=== PATIENT | female | born 1960 | race Caucasian/White ===

== ENCOUNTER 2017-09-15 22:39 | Inpatient (IN) | payer MEDICARE, MEDICAID ==
[2017-09-15] MEDS ORDERED: Multivitamin Tab PO ONE (23:32)
[2017-09-15 23:49] LABS: % EOSINOPHILS 0.6 % (0.0-5.0); % LYMPHOCYTES 33.4 % (20.0-50.0); % MONOCYTES 10.8 % (2.0-10.0); % NEUTROPHILS 54.2 % (40.0-80.0); HEMATOCRIT 39.1 % (41.0-60); HEMOGLOBIN 13.5 gm/dL (12-16); MEAN CELL VOLUME 91.9 fl (81-100); MEAN CORPUSCULAR HEMOGLOBIN 31.6 pg (27.0-31.0); MEAN CORPUSCULAR HGB CONC 34.4 pg (28.0-36.0); MEAN PLATELET VOLUME 8.4 fl; NEUTROPHILE ABSOLUTE 4.1 Th/cmm (1.8-8.0); PLATELET COUNT 184 Th/cmm (150-400); RED BLOOD COUNT 4.25 Mil/cmm (3.80-5.10); RED CELL DISTRIBUTION WIDTH 12.9 % (11.5-20.0); WHITE BLOOD COUNT 7.5 Th/cmm (4.8-10.8)
[2017-09-16 00:01] LABS: INR 0.96 (0.5-1.4)
[2017-09-16 00:02] LABS: ANION GAP 7.7 (7.0-16.0); BUN/CREATININE RATIO 27.5; CALCIUM SERUM 9.8 mg/dL (8.6-10.3); CARBON DIOXIDE 28.2 mEq/L (21.0-31.0); CREATININE - SERUM 1.2 mg/dL (0.6-1.2); POTASSIUM SERUM 3.9 mEq/L (3.5-5.1)
[2017-09-16] MEDS ORDERED: Multivitamin Tab ONE (00:27)
[2017-09-16] MEDS ORDERED: Levofloxacin 500mg/100mL 500 MG/100 ML BAG IV ONE (00:29)
--- NOTE | 2017-09-16 02:32 | ER Physician Documentation ---
DATE OF SERVICE: 09/15/2017 The patient is full code. This is a 57-year-old female patient. She is schizophrenic. This patient came from [facility]. [facility] is located in [address] [place] [id number]. The patient was seen today. I was told that at [facility], where she was given a gram of vancomycin, she has some cellulitis in the right second toe and a little growth also somewhere on the top of the second toe and hence they gave the thing. The patient was not very cooperative. The patient did not wanted anything further to be done for her, so she did not allow them for any treatment, so the patient was brought over here. HISTORY OF PRESENT ILLNESS: The patient has paranoid schizophrenia. She is known to have essential hypertension, hypothyroidism, atherosclerotic heart disease of [place] coronary artery without any definite angina pectoris, peripheral vascular disease, unspecified, but we did a Doppler study. Doppler evaluation of both dorsalis pedis, posterior tibial, we could hear sounds in both dorsalis pedis and posterior tibial. So peripheral vascular disease is not that bad. She has primary osteoarthritis of the right ankle and the right foot. She has disorder of the kidney and the ureter. She has gastroesophageal reflux without esophagitis. She has ____ absence of other toe. The patient is very hard to get any history. She keeps on mumbling lots of things and she cannot give more history or whatever I will find it, I will let you. REVIEW OF SYSTEMS: Also difficult to evaluate in view of the patient's condition. From what I read here in the previous [facility], the patient has some bowel management program. She has a history of orthostatic ____. She had a tardive dyskinesia. She had some pain management and treatment. She was also given some Ativan at the [facility], Ativan 1 tablet p.r.n. 3 times a day for paranoid schizophrenia. She was also given Depakote 500 mg by mouth 3 times a day for mood swings. DSS capsule was given. She was given magnesium hydroxide suspension 400 mg 5 mL as needed for constipation, multivitamin with minerals was given, Mylanta suspension was given as needed, 200-200-20 mg-5 mL. That 5 mL, I believe must be simethicone 30 mL by mouth every 2 hours as needed for GI distress. She was given some oxybutynin chloride ER extended release 24 hours, Seroquel 200 mg, which is quetiapine fumarate 1 tablet 4 times a day and Synthroid tablet, levothyroxine. Since we do not do the thyroid evaluation here in the hospital, it would be ordered by the primary care physician in another hospital. ALLERGIES: THORAZINE. She is taking a regular diet over there with 8 ounce of water with each meal. She is here to be admitted and having taken care for the treatment. I see here, the patient got some Cardiology consult and Eye consult and got some pneumococcal immunization and flu vaccination was given to her. Surrogate decision maker also I see that somebody is here as a surrogate decision maker for her. On physical examination, the patient was seen in bed 3. I looked at the x-ray, I could not definitely say for sure whether there was any osteomyelitis. I do not see for sure, but we will wait for the radiology report. On physical exam all the pulses in upper and lower extremities were felt. The patient keeps on mumbling different kinds of things, she has schizophrenia. She has no meningeal signs. She looks somewhat older than her stated age, not in any acute cardiorespiratory distress. Overall, general exam is benign and negative. No tremors. No Parkinson's disease seen. On examination of the right second toe, it is red, inflamed, tender, painful. We will get some uric acid level to see if there is any gouty arthritis present in this patient. The patient also has a small growth, I think on her right second toe, might need to be seen by a surgeon, might need a resection, but in the meantime, she is given clindamycin, vancomycin and I think I will give some Levaquin for a pseudomonas infection, if there is any. Other lab workup has been ordered. Foot x-ray has been ordered. Low cholesterol diet was given to the patient. We will get some lipid profile, etc. done for her. Other treatment as needed will be given to the patient as needed. JOB# [id number]
--- NOTE | 2017-09-16 02:37 | ER Physician Documentation ---
DATE OF SERVICE: 09/15/2017 ADDENDUM A 57-year-old female patient seen by me in the Emergency Room, dictated by Dr. Acosta. The lab reports so far that I got was white count of 7.5, which is within normal limits. Please note that the patient already got vancomycin today sometime at the [facility]. Hemoglobin 13.5, hematocrit 39.1, platelet count is 184,000 and polys are 54.2%. So far, I got that report only show just mentioning that. Once I get more, I will give it you. It is difficult to get it so far. JOB# [id number]
--- NOTE | 2017-09-16 02:39 | ER Physician Documentation ---
DATE OF SERVICE: 09/15/2017 ADDENDUM The patient will be admitted under Dr. Rivera Longo in the hospital for further continuation of care. Other lab results are not available. I am not sure when it will be coming, but the floor nurses can retract that. JOB# [id number]
[2017-09-16] MEDS: Sodium Chloride 0.9% 1,000 ML IV SCH ×2 (03:57→18:09)
[2017-09-16 04:31] VITALS: BP 135/74
[2017-09-16] MEDS ORDERED: Maalox 30 mL Cup PO PRN (08:00)
[2017-09-16] MEDS: Levothyroxine 0.1 Mg Tab PO SCH (09:06)
--- NOTE | 2017-09-16 10:02 | Diagnostic Imaging Report ---
Right foot 3 views Indication: Pain rule out osteomyelitis or fracture Comparison: none Findings: Hammertoes are seen limiting evaluation of the phalanges. No evidence of an acute fracture or dislocation. Hallux valgus is noted. There is no x-ray evidence of osteomyelitis. Pes planus is noted. A large plantar calcaneal spur is noted. Mild to moderate generalized degenerative changes are noted. Impression: Limited assessment of the phalanges due to hammertoes and hallux valgus. No evidence of an acute fracture. No x-ray evidence of osteomyelitis. If there is continued clinical concern for osteomyelitis, MRI is recommended for further assessment. Large plantar calcaneal spur. Pes planus. Mild/moderate generalized degenerative changes. In the setting of trauma, if clinical symptoms persist and there is continued concern for an occult fracture, follow up exams in 5-7 days is suggested.
[2017-09-16 11:15] LABS: HEMATOCRIT 39.9 % (41.0-60); HEMOGLOBIN 13.7 gm/dL (12-16); MEAN CELL VOLUME 92.2 fl (81-100); MEAN CORPUSCULAR HEMOGLOBIN 31.6 pg (27.0-31.0); MEAN CORPUSCULAR HGB CONC 34.2 pg (28.0-36.0); MEAN PLATELET VOLUME 8.4 fl; PLATELET COUNT 164 Th/cmm (150-400); RED BLOOD COUNT 4.33 Mil/cmm (3.80-5.10)
[2017-09-16 11:16] LABS: WHITE BLOOD COUNT 5.8 Th/cmm (4.8-10.8)
[2017-09-16 11:35] LABS: ANION GAP 7.2 (7.0-16.0); BUN - UREA NITROGEN 27 mg/dL (7-25); BUN/CREATININE RATIO 24.5; CALCIUM SERUM 9.6 mg/dL (8.6-10.3); CARBON DIOXIDE 29.7 mEq/L (21.0-31.0); CHLORIDE 108 mEq/L (98-107); CREATININE - SERUM 1.1 mg/dL (0.6-1.2); GLUCOSE 78 mg/dL (70-105); POTASSIUM SERUM 3.9 mEq/L (3.5-5.1); SODIUM SERUM 141 mEq/L (136-145)
[2017-09-16 12:01] LABS: TOTAL CELLS COUNTED 100
[2017-09-16 12:02] LABS: BAND NEUTROPHILE 3 % (0-10); EOSINOPHIL 1 % (0-5); NEUTROPHILS 39 % (40-80); PLATELET ESTIMATE ADEQUATE (NORMAL); PLATELET MORPHOLOGY NORMAL (NORMAL)
--- NOTE | 2017-09-16 16:53 | Consultation ---
Consult Note - Consult Note Service Date: 09/16/17 Consult Note: PHYSICIAN Consultation Note: Date of Admission: 09/16/17 Purpose of Consultation: Chief Complaint: History of Present Illness: Patient NADJA BAUER was admitted to [facility] with CELLULITIS. Past Medical History: Allergies Allergy/AdvReac Type Severity Reaction Status Date / Time No Known Allergies Allergy Verified 09/15/17 23:41 Vital Signs Temp 98.2 F 09/16/17 14:35 Pulse 84 09/16/17 14:35 Resp 18 09/16/17 14:35 BP 132/66 09/16/17 14:35 Pulse Ox 96 09/16/17 14:35 Intake & Output 09/15/17 09/16/17 09/16/17 18:59 06:59 18:59 Intake Total 100 Balance 100 Weight (lbs) 86.183 kg Intake: Oral 100 Other: # Voids 1 # Bowel Movements 0 Laboratory Results - last 24 hr 09/16/17 09/16/17 10:56 10:56 WBC 5.8 D RBC 4.33 Hgb 13.7 Hct 39.9 L MCV 92.2 MCH 31.6 H MCHC Differential 34.2 RDW 13.0 Plt Count 164 MPV 8.4 Band Neutrophils % 3 Neutrophils (Manual) 39 L Lymphocytes 44 Monocytes 10 Eosinophils 1 Atypical Lymphocytes 3 Platelet Estimate ADEQUATE Platelet Morphology NORMAL RBC Morph Micro Appear NORMAL Sodium 141 Potassium 3.9 Chloride 108 H Carbon Dioxide 29.7 Anion Gap 7.2 BUN 27 H Creatinine 1.1 Est GFR ( Amer) > 60.0 Est GFR (Non-Af Amer) 54.6 BUN/Creatinine Ratio 24.5 Glucose 78 Calcium 9.6 Home Medication Medication Instructions Recorded Type Divalproex DR [Depakote DR] 500 mg PO TID 09/15/17 History Docusate Sodium [Colace] 1 cap PO DAILY 09/15/17 History Lorazepam [Ativan] 1 mg PO TID 09/15/17 History Magnesium Hydroxide [Milk of 30 ml PO HS 09/15/17 History Magnesia] Magnesium Hydroxide/Al Hydrox 30 ml PO Q2HR 09/15/17 History [Mag-Al Liquid 200 mg/5 ml-200 mg/5 ml 30 ml] Oxybutynin Chloride [Oxybutynin 5 mg PO HS 09/15/17 History Chloride ER] QUEtiapine Fumarate [SEROquel] 200 mg PO QID 09/15/17 History Levothyroxine [Synthroid] 100 mcg PO DAILY 09/16/17 History Current Medications Generic Name Dose Route Start Last Admin Trade Name Freq PRN Reason Stop Dose Admin Divalproex Sodium 500 mg 09/16/17 09:[address] PO 11/15/17 08:59 TID ANTWAN Protocol Docusate Sodium 250 mg 09/16/17 09:00 09/16/17 09:05 Colace PO 11/15/17 08:59 250 mg DAILY ANTWAN Administration Haloperidol 2 mg 09/16/17 09:00 Haldol PO 11/15/17 08:59 BID ANTWAN Protocol Levofloxacin 500 mg in 100 mls @ 100 mls/hr 09/17/17 01:00 Levaquin Pb IV 11/16/17 00:59 Q24HR ANTWAN Sodium Chloride 1,000 mls @ 100 mls/hr 09/16/17 00:12 09/16/17 03:57 Nacl 0.9% IV 11/15/17 00:11 100 mls/hr .Q10H ANTWAN Administration Vancomycin HCl 1,250 gm/ 250 mls @ 165 mls/hr 09/17/17 08:00 Sodium Chloride IV 11/16/17 07:59 Q24HR@0800 ANTWAN Levothyroxine Sodium 0.1 mg 09/16/17 09:00 09/16/17 09:06 Synthroid PO 11/15/17 08:59 0.1 mg DAILY ANTWAN Administration Lorazepam 1 mg 09/15/17 23:49 09/16/17 09:05 Ativan PO 11/14/17 23:48 1 mg Q6HR PRN Administration Agitation Protocol Lorazepam 1 mg 09/16/17 09:00 Ativan PO 11/15/17 08:59 TID ANTWAN Protocol Magnesium Hydroxide 30 ml 09/16/17 21:00 Milk Of Magnesia PO 11/15/17 20:59 HS ANTWAN Miscellaneous 1 ea 09/15/17 23:30 Vancomycin Iv Per Pharmacy 11/14/17 23:29 PRN PRN PROTOCOL Miscellaneous 30 ml 09/16/17 08:00 Magnesium Hydroxide/Al Hydrox [Mag-Al Liquid] PO 11/15/17 07:59 Q2HR ANTWAN Oxybutynin Chloride 5 mg 09/16/17 21:00 Ditropan Xl PO 11/15/17 20:59 HS ANTWAN Quetiapine Fumarate 200 mg 09/16/17 09:00 Seroquel PO 11/15/17 08:59 QID ANTWAN Protocol Review of Systems: A 12 point ROS was reviewed with the pertinent positive and negatives noted in the HPI. Social History Smoking Status Unknown if ever smoked Drug Use No Alcohol Use No Family Medical History Family Medical History Start: 09/16/17 02: 50 Freq: ONCE Status: Active Document 09/16/17 05:14 CASI (Rec: 09/16/17 05:29 CASI [id number]) Family Medical History Mother History Unknown Yes Ethnicity Unknown Living Status Still Living Other Medical History Patient unable to give information about medical history of family member, poor historian. Physical Exam: General: HEENT: Neck: Cardio: Respiratory: Abdominal: Genital/Urinary: Extremities: Neurological: Assessment: Plan: Signed, Dipak Johnson M.D. [id number]
[2017-09-16] MEDS: Oxybutynin Chloride 5 mg ER Tab PO SCH (20:54)
[2017-09-16] MEDS: Magnesium Hydroxide (MOM) 30 mL UDC PO SCH ×2 (20:55→21:00)
--- NOTE | 2017-09-16 21:03 | Consultation ---
DATE OF CONSULTATION: 09/16/2017 HISTORY OF PRESENT ILLNESS: A 57-year-old female coming from [place], history of schizophrenia, rambling nonsensically, bizarre, flight of ideas, not making any sense, singing instead of answering questions, stating that she is from [place]. It is very difficult to follow her thought processes. PAST PSYCHIATRIC HISTORY: Schizophrenia. FAMILY HISTORY: Unknown. SOCIAL HISTORY: Unclear. She is coming from [facility]. She states that she was born in [place]. Not , no kids. MEDICATIONS: Noted. PAST MEDICAL HISTORY: Noted. MENTAL STATUS EXAMINATION: Stated age. Fair eye contact. Speech rambling, loud, singing. Mood: Not answering. Affect bizarre. Thought processes are flight of ideas. Thought content: No SI, no HI, but she appears quite psychotic, singing and responding to internal stimuli. Insight and judgment diminished. PROVISIONAL DIAGNOSIS: Schizophrenia, rule out schizoaffective. MEDICAL: Please see full H and P. RECOMMENDATIONS AND PLAN: The patient currently on max dose of Seroquel 200 q.i.d. She is also on Ativan t.i.d. and p.r.n. and she is on Depakote. She may benefit from a dosing of Haldol. We will initiate Haldol b.i.d. as adjunctive to try to calm the patient down. JOB# [id number]
[2017-09-17] MEDS: Levofloxacin 500mg/100mL 500 MG/100 ML BAG IV SCH (00:05)
[2017-09-17 05:10] LABS: % BASOPHILS 1.1 % (0.0-2.0); % EOSINOPHILS 1.6 % (0.0-5.0); % LYMPHOCYTES 50.4 % (20.0-50.0); % MONOCYTES 12.1 % (2.0-10.0); % NEUTROPHILS 34.8 % (40.0-80.0); HEMOGLOBIN 11.9 gm/dL (12-16); MEAN CORPUSCULAR HEMOGLOBIN 31.3 pg (27.0-31.0); NEUTROPHILE ABSOLUTE 1.9 Th/cmm (1.8-8.0); PLATELET COUNT 141 Th/cmm (150-400); RED CELL DISTRIBUTION WIDTH 12.9 % (11.5-20.0); WHITE BLOOD COUNT 5.6 Th/cmm (4.8-10.8)
[2017-09-17 05:27] LABS: ALKALINE PHOSPHATASE 73 U/L (34-104); ANION GAP 7.8 (7.0-16.0); BILIRUBIN,TOTAL 0.4 mg/dL (0.3-1.0); BUN - UREA NITROGEN 22 mg/dL (7-25); BUN/CREATININE RATIO 24.4; CALCIUM SERUM 7.7 mg/dL (8.6-10.3); CARBON DIOXIDE 24.7 mEq/L (21.0-31.0); CHLORIDE 113 mEq/L (98-107); CREATININE - SERUM 0.9 mg/dL (0.6-1.2); GLUCOSE 87 mg/dL (70-105); POTASSIUM SERUM 3.5 mEq/L (3.5-5.1); SGOT 16 U/L (13-39); SGPT/ALT 10 U/L (7-52); SODIUM SERUM 142 mEq/L (136-145)
[2017-09-17] MEDS ORDERED: Haloperidol Lactate 5 mg/mL 1mL Vial IM ONE (08:05)
[2017-09-17] MEDS: Levothyroxine 0.1 Mg Tab PO SCH (09:41)
--- NOTE | 2017-09-17 10:07 | General Progress Note ---
Subjective - Review of Systems Service Date: 09/17/17 Events since last encounter: chart reviewed unable to obtain info from patient labs noted xray no osteo PE tip of right 3rd toe with black scab which needs debridement, consent to be signed by? Objective - Results Result Diagrams: 09/17/17 05:00 09/17/17 05:00 Recent Labs: Laboratory Last Values WBC 5.6 Th/cmm (4.8-10.8) 09/17/17 05:00 RBC 3.80 Mil/cmm (3.80-5.10) 09/17/17 05:00 Hgb 11.9 gm/dL (12-16) L 09/17/17 05:00 Hct 35.0 % (41.0-60) L D 09/17/17 05:00 MCV 92.0 fl (81-100) 09/17/17 05:00 MCH 31.3 pg (27.0-31.0) H 09/17/17 05:00 MCHC Differential 34.0 pg (28.0-36.0) 09/17/17 05:00 RDW 12.9 % (11.5-20.0) 09/17/17 05:00 Plt Count 141 Th/cmm (150-400) L 09/17/17 05:00 MPV 8.0 fl 09/17/17 05:00 Neutrophils % 34.8 % (40.0-80.0) L 09/17/17 05:00 Band Neutrophils % 3 % (0-10) 09/16/17 10:56 Lymphocytes % 50.4 % (20.0-50.0) H 09/17/17 05:00 Monocytes % 12.1 % (2.0-10.0) H 09/17/17 05:00 Eosinophils % 1.6 % (0.0-5.0) 09/17/17 05:00 Basophils % 1.1 % (0.0-2.0) 09/17/17 05:00 Neutrophils (Manual) 39 % (40-80) L 09/16/17 10:56 Lymphocytes 44 % (20-50) 09/16/17 10:56 Monocytes 10 % (2-10) 09/16/17 10:56 Eosinophils 1 % (0-5) 09/16/17 10:56 Atypical Lymphocytes 3 % 09/16/17 10:56 Platelet Estimate ADEQUATE (NORMAL) 09/16/17 10:56 Platelet Morphology NORMAL (NORMAL) 09/16/17 10:56 RBC Morph Micro Appear NORMAL (NORMAL) 09/16/17 10:56 PT 10.0 SECONDS (9.5-11.5) 09/15/17 23:39 INR 0.96 (0.5-1.4) 09/15/17 23:39 Sodium 142 mEq/L (136-145) 09/17/17 05:00 Potassium 3.5 mEq/L (3.5-5.1) 09/17/17 05:00 Chloride 113 mEq/L (98-107) H 09/17/17 05:00 Carbon Dioxide 24.7 mEq/L (21.0-31.0) 09/17/17 05:00 Anion Gap 7.8 (7.0-16.0) 09/17/17 05:00 BUN 22 mg/dL (7-25) 09/17/17 05:00 Creatinine 0.9 mg/dL (0.6-1.2) 09/17/17 05:00 Est GFR ( Amer) > 60.0 ml/min (>90) 09/17/17 05:00 Est GFR (Non-Af Amer) > 60.0 ml/min 09/17/17 05:00 BUN/Creatinine Ratio 24.4 09/17/17 05:00 Glucose 87 mg/dL (70-105) 09/17/17 05:00 Calcium 7.7 mg/dL (8.6-10.3) L 09/17/17 05:00 Magnesium 2.1 mg/dL (1.9-2.7) 09/15/17 23:39 Total Bilirubin 0.4 mg/dL (0.3-1.0) 09/17/17 05:00 AST 16 U/L (13-39) 09/17/17 05:00 ALT 10 U/L (7-52) 09/17/17 05:00 Alkaline Phosphatase 73 U/L (34-104) 09/17/17 05:00 Total Protein 5.8 gm/dL (6.0-8.3) L 09/17/17 05:00 Albumin 2.9 gm/dL (3.7-5.3) L 09/17/17 05:00 Globulin 2.9 gm/dL 09/17/17 05:00 Albumin/Globulin Ratio 1.0 (1.0-1.8) 09/17/17 05:00 - Physical Exam Vitals and I&O: Vital Signs Temp 98.0 F 09/17/17 04:00 Pulse 69 09/17/17 04:00 Resp 18 09/17/17 04:00 BP 146/80 09/17/17 04:00 Pulse Ox 98 09/17/17 04:00 Intake & Output 09/16/17 09/17/17 09/17/17 18:59 06:59 18:59 Intake Total 308.333 Balance 308.333 Weight (lbs) 86.183 kg Intake: Intake, IV Amount 108.333 Sodium Chloride 0.9% 1, 108.333 000 ml @ 100 mls/hr IV . Q10H [facility] Rx#:[id number] Oral 200 Other: # Bowel Movements 0 Active Medications: Current Medications Divalproex Sodium (Depakote Dr) 500 mg PO TID [facility] PRN Reason: Protocol Stop: 11/15/17 08:59 Last Admin: 09/17/17 09:32 Dose: 500 mg Docusate Sodium (Colace) 250 mg PO DAILY ANTWAN Stop: 11/15/17 08:59 Last Admin: 09/17/17 09:32 Dose: 250 mg Haloperidol (Haldol) 4 mg PO BID ANTWAN PRN Reason: Protocol Stop: 11/16/17 07:23 Levofloxacin (Levaquin Pb) 500 mg in 100 mls @ 100 mls/hr IV Q24HR ANTWAN Stop: 11/16/17 00:59 Last Admin: 09/17/17 00:05 Dose: 100 mls/hr Sodium Chloride (Nacl 0.9%) 1,000 mls @ 100 mls/hr IV .Q10H ANTWAN Stop: 11/15/17 00:11 Last Infusion: 09/16/17 19:14 Dose: 100 mls/hr Vancomycin HCl 1,250 gm/ (Sodium Chloride) 250 mls @ 165 mls/hr IV Q24HR@0800 ANTWAN Stop: 11/16/17 07:59 Last Admin: 09/17/17 09:00 Dose: 165 mls/hr Levothyroxine Sodium (Synthroid) 0.1 mg PO DAILY ANTWAN Stop: 11/15/17 08:59 Last Admin: 09/17/17 09:41 Dose: 0.1 mg Lorazepam (Ativan) 1 mg PO Q6HR PRN; Protocol PRN Reason: Agitation Stop: 11/14/17 23:48 Last Admin: 09/16/17 09:05 Dose: 1 mg Lorazepam (Ativan) 1 mg PO TID ANTWAN PRN Reason: Protocol Stop: 11/15/17 08:59 Magnesium Hydroxide (Milk Of Magnesia) 30 ml PO HS ANTWAN Stop: 11/15/17 20:59 Last Admin: 09/16/17 21:00 Dose: Not Given Miscellaneous (Vancomycin Iv Per Pharmacy) 1 ea [facility] PRN PRN PRN Reason: PROTOCOL Stop: 11/14/17 23:29 Miscellaneous (Magnesium Hydroxide/Al Hydrox [Mag-Al Liquid]) 30 ml PO Q2HR ANTWAN Stop: 11/15/17 07:59 Oxybutynin Chloride (Ditropan Xl) 5 mg PO HS [facility] Stop: 11/15/17 20:59 Last Admin: 09/16/17 20:54 Dose: 5 mg Quetiapine Fumarate (Seroquel) 200 mg PO QID ANTWAN PRN Reason: Protocol Stop: 11/15/17 08:59 Last Admin: 09/17/17 09:32 Dose: 200 mg
--- NOTE | 2017-09-17 10:40 | Progress Notes ---
DATE: 09/17/2017 SUBJECTIVE: The patient seen, chart reviewed, discussed with staff. A 57-year-old female, schizophrenia, rambling nonsensically, flight of ideas. Psychomotorically accelerated, difficult to redirect asking for medication adjustments. The patient nonsensical. ASSESSMENT: The patient remains symptomatic, still with ongoing symptoms. PLAN: I will be increasing the Haldol today. The patient with history of schizophrenia, symptoms ongoing, still with psychosis, disorganization, it is unclear what her baseline is. JOB# [id number]
[2017-09-17] MEDS ORDERED: Probiotic Screen MC PRN (11:39)
[2017-09-17] MEDS: Oxybutynin Chloride 5 mg ER Tab PO SCH (20:31)
[2017-09-17] MEDS: Magnesium Hydroxide (MOM) 30 mL UDC PO SCH (21:26)
[2017-09-18] MEDS: Sodium Chloride 0.9% 1,000 ML IV SCH ×2 (00:56→14:12)
[2017-09-18] MEDS: Levofloxacin 500mg/100mL 500 MG/100 ML BAG IV SCH (00:58)
[2017-09-18 07:11] LABS: % BASOPHILS 0.8 % (0.0-2.0); % EOSINOPHILS 1.7 % (0.0-5.0); % LYMPHOCYTES 51.7 % (20.0-50.0); % MONOCYTES 11.2 % (2.0-10.0); % NEUTROPHILS 34.6 % (40.0-80.0); HEMOGLOBIN 13.5 gm/dL (12-16); MEAN CELL VOLUME 91.7 fl (81-100); MEAN CORPUSCULAR HEMOGLOBIN 31.2 pg (27.0-31.0); MEAN PLATELET VOLUME 8.5 fl; RED BLOOD COUNT 4.31 Mil/cmm (3.80-5.10); WHITE BLOOD COUNT 5.9 Th/cmm (4.8-10.8)
[2017-09-18 07:12] LABS: HEMATOCRIT 39.6 % (41.0-60); PLATELET COUNT 170 Th/cmm (150-400)
[2017-09-18 07:29] LABS: INR 1.1 (0.5-1.4); PROTHROMBIN TIME (TEST) 11.5 SECONDS (9.5-11.5)
--- NOTE | 2017-09-18 08:01 | Diagnostic Imaging Report ---
CHEST X-RAY: AP view INDICATION: Shortness of breath COMPARISON: None FINDINGS: Suboptimal lung volumes are seen increased bibasilar markings. No focal consolidation identified. The may be a trace left effusion. Heart size normal. Atherosclerosis of the aortic arch is noted. The osseous structures are intact. IMPRESSION: Suboptimal lung volumes increased bibasilar lung markings favoring atelectasis. No focal consolidation identified.
[2017-09-18] MEDS: Levothyroxine 0.1 Mg Tab PO SCH (08:39)
[2017-09-18] MEDS ORDERED: Lactobacillus Rhamnosus 10 Billion CFU Capsule PO SCH (09:00)
--- NOTE | 2017-09-21 22:17 | History & Physical ---
ADMIT DATE: 09/16/2017 HISTORY OF PRESENT ILLNESS: The patient came from [place]. The patient was very confused. The patient was known to have a history of hypertension, hypothyroidism, history of atherosclerotic heart disease, history of peripheral vascular disease, also some leg cellulitis, who was admitted initially and then patient seen by Dr. Johnson, ID consult, and also we had a psychiatrist see him, Dr. Dodd, who was covering for Dr. Owens and the patient was transferred to the Geropsych Unit for further care per psychiatrist. PHYSICAL EXAMINATION: HEAD: Normal. ENT: Normal. NECK: Supple, nontender. LUNGS: Clear. CARDIOVASCULAR SYSTEM: S1 and S2 heard. ABDOMEN: Soft. Bowel sounds are heard. CENTRAL NERVOUS SYSTEM: Grossly normal. DIAGNOSES: Paranoid schizophrenia, history of hypertension, history of hypothyroidism, atherosclerotic heart disease, peripheral vascular disease, and cellulitis. I will follow all the medical problems and I will follow along with the psychiatrist. [facility]# [id number]
== END 2017-09-18 15:51 | DRG 603 ==
LOC: ER 22:39 → UNDOADMIN 09-16 02:30 → MSI 09-16 02:30
PROVIDERS: ADMIT Internal Medicine; ATTEND Internal Medicine
DX: L03.031 Cellulitis of right toe (principal); E44.0 Moderate protein-calorie malnutrition; F20.0 Paranoid schizophrenia; I73.9 Peripheral vascular disease, unspecified; I10 Essential (primary) hypertension; E03.9 Hypothyroidism, unspecified; I25.10 Atherosclerotic heart disease of native coronary artery without angina pectoris; K21.9 Gastro-esophageal reflux disease without esophagitis; M19.071 Primary osteoarthritis, right ankle and foot; Z79.899 Other long term (current) drug therapy
CPT/HCPCS: 36415-UA; 71010-TC; 73630-TC-RT; 80048-TC; 80053-TC; 80202-TC; 83735-TC; 85007-TC; 85025-TC; 85027-TC; 85610-TC; 87086-90; 93005; J1200; J1630; J1956; J2060; J3370; J7030; Z7610

== ENCOUNTER 2017-09-18 16:11 | Inpatient (IN) | payer MEDICARE, MEDICAID ==
[2017-09-18 16:48] VITALS: BP 104/67
[2017-09-18] MEDS ORDERED: Maalox 30 mL Cup PO PRN (16:48)
[2017-09-18] MEDS ORDERED: Magnesium Hydroxide (MOM) 30 mL UDC PO PRN (16:48)
[2017-09-18] MEDS ORDERED: AL HYDROX PO SCH (21:45)
[2017-09-18] MEDS ORDERED: MAGNESIUM HYDROXIDE PO SCH (21:45)
--- NOTE | 2017-09-18 21:46 | History and Physical ---
History of Present Illness - HPI Chief Complaint: agitation HPI: 57 year old female who has a past medical hx of hypothyroidism, cellulitis right second toe, htn, ahd, cad who is admitted to [facility] for agitation Vital Signs: Last Vital Signs Temp 98.6 F 09/18/17 20:50 Pulse 94 09/18/17 20:50 Resp 18 09/18/17 20:50 BP 116/61 09/18/17 20:50 Pulse Ox 94 09/18/17 20:50 Past Medical History Cardiovascular: Report: CAD, HTN Pulmonary: Report: No Pertinent Hx PERSON INVESTIGATOR: Report: No Pertinent Hx GI: Report: No Pertinent Hx Musculoskeletal: Report: No Pertinent Hx, Other Rheumatologic: Report: No pertinent Hx Infectious Disease: Report: Other (celulluitis) Renal/: Report: No Pertinent Hx Family Medical History - Family Member Mother History Unknown: Yes (noncontibutory) Ethnicity: Unknown Living Status: Still Living Social History Smoke: No Alcohol: None Drugs: None Lives: Detention Domestic Violence: Negative - Medications Home Medications: Home Medication Medication Instructions Recorded Type Divalproex DR [Depakote DR] 500 mg PO TID 09/15/17 History Docusate Sodium [Colace] 1 cap PO DAILY 09/15/17 History Lorazepam [Ativan] 1 mg PO TID 09/15/17 History Magnesium Hydroxide [Milk of 30 ml PO HS 09/15/17 History Magnesia] Magnesium Hydroxide/Al Hydrox 30 ml PO Q2HR 09/15/17 History [Mag-Al Liquid] Oxybutynin Chloride [Oxybutynin 5 mg PO HS 09/15/17 History Chloride ER] QUEtiapine Fumarate [SEROquel] 200 mg PO QID 09/15/17 History Levothyroxine [Synthroid] 100 mcg PO DAILY 09/16/17 History Haloperidol [Haldol*] 4 mg PO BID tab 09/18/17 Rx Lactobacillus Rhamnosus 1 each PO DAILY cap.sprink 09/18/17 Rx [Culturelle] Levofloxacin 500mg/100mL [Levaquin 500 mg IV Q24HR bag 09/18/17 Rx PB] Lorazepam [Ativan] 1 mg PO Q6HR PRN tab 09/18/17 Rx - Allergies Allergies/Adverse Reactions: Allergies Allergy/AdvReac Type Severity Reaction Status Date / Time No Known Allergies Allergy Verified 09/15/17 23:41 Review of Systems - Review of Systems Constitutional: Report: No Significant Eyes: Report: No Significant ENT: Report: No Significant Respiratory: Report: No Significant Cardiovascular: Report: No Significant Gastrointestinal: Report: No Significant Genitourinary: Report: No Significant Musculoskeletal: Report: No Significant Skin: Report: No Significant Neurological: Report: No Significant Physical Exam - Physical Exam HEENT: Report: Ears Nose Throat within normal limits Neck: Report: Within normal limits Cardiovascular Systems: Report: +s1/s2 noted Respiratory: Report: Breath Sounds are within normal limits Abdomen: Report: Non-tender to palpation Extremities: Report: Non-tender to palpation. Skin: Report: Color of skin is within normal limits Neuro/Psych: Report: Disoriented to name time or place - Assessment Assessment: hypothyroidism htn ahd psychosis schizophrenia - Plan Plan: continue current orders cpm
--- NOTE | 2017-09-19 02:10 | Progress Notes ---
DATE: 09/18/2017 Case was discussed with staff of patient's record. The patient was seen by Dr. Dodd who initiated the consult. She is on medication because of her psychosis. The patient continues to be unpredictable. [facility] She is still unpredictable, impulsive, rambling speech. The patient will be transferred to [facility] today to stabilize her. Thank you very much for allowing me to participate in the care of this nice looking lady. JOB# [id number]
[2017-09-19] MEDS: Levothyroxine 0.1 Mg Tab PO SCH (06:40)
[2017-09-19] MEDS ORDERED: Levothyroxine 0.125 Mg Tab PO SCH (07:30)
--- NOTE | 2017-09-19 08:54 | General Progress Note ---
Subjective - Review of Systems Events since last encounter: hx of hypothyroidism, cellulitis right second toe, htn, ahd, cad who is admitted to [facility] for agitation Objective - Physical Exam Vitals and I&O: Vital Signs Temp 98.2 F 09/19/17 06:39 Pulse 90 09/19/17 06:39 Resp 20 09/19/17 06:39 BP 124/74 09/19/17 06:39 Pulse Ox 93 09/19/17 06:39 Intake & Output 09/18/17 09/19/17 09/19/17 18:59 06:59 18:59 Intake Total 360 Balance 360 Intake: Oral 360 Other: # Voids 1 # Bowel Movements 0 Active Medications: Current Medications Acetaminophen (Tylenol) 650 mg PO Q4HR PRN PRN Reason: Mild Pain / Temp above 100 Stop: 11/17/17 16:47 Al Hydrox/Mg Hydrox/Simethicone (Maalox) 30 ml PO Q4HR PRN PRN Reason: GI DISTRESS Stop: 11/17/17 16:47 Divalproex Sodium (Depakote Dr) 500 mg PO TID ANTWAN PRN Reason: Protocol Stop: 11/18/17 08:59 Docusate Sodium (Colace) 100 mg PO DAILY ATNWAN Stop: 11/18/17 08:59 Haloperidol (Haldol) 4 mg PO BID ANTWAN PRN Reason: Protocol Stop: 11/18/17 08:59 Lactobacillus Rhamnosus (Culturelle) 1 each PO DAILY ANTWAN Stop: 11/18/17 08:59 Levothyroxine Sodium (Synthroid) 0.1 mg PO QDAC ANTWAN Stop: 11/18/17 07:29 Last Admin: 09/19/17 06:40 Dose: 0.1 mg Lorazepam (Ativan) 1 mg PO Q6HR PRN; Protocol PRN Reason: Agitation Stop: 11/17/17 21:38 Last Admin: 09/19/17 02:50 Dose: 1 mg Magnesium Hydroxide (Milk Of Magnesia) 30 ml PO HS PRN PRN Reason: Constipation Multivitamins/Vitamin C (Theragran) 1 tab PO DAILY ANTWAN Stop: 11/18/17 08:59 Oxybutynin Chloride (Ditropan Xl) 5 mg PO HS ANTWAN Stop: 11/18/17 20:59 Quetiapine Fumarate (Seroquel) 200 mg PO QID ANTWAN PRN Reason: Protocol Stop: 11/18/17 08:59 Zolpidem Tartrate (Ambien) 5 mg PO HS PRN PRN Reason: Insomnia Stop: 11/17/17 16:47 General: Alert, No acute distress HEENT: Atraumatic, PERRLA Neck: Supple Cardiovascular: Regular rate, Normal S1 Assessment/Plan - Problem List Patient Problems: All Active Problems HTN (hypertension) (Acute) I10 Hypothyroid (Acute) E03.9 Psychosis (Acute) F29 Schizophrenia (Acute) F20.9 - Assessment Assessment: hypothyroidism htn ahd psychosis schizophrenia - Plan Plan: continue current orders cpm
[2017-09-19] MEDS ORDERED: Lactobacillus Rhamnosus 10 Billion CFU Capsule PO SCH (09:00)
--- NOTE | 2017-09-19 12:56 | Psychosocial Evaluation ---
DATE OF SERVICE: 09/18/2017 IDENTIFYING INFORMATION: The patient is a 57-year-old female. CHIEF COMPLAINT: No answer. HISTORY OF PRESENT ILLNESS: The patient was referred from [place] because of schizophrenia, rambling speech, nonsensical, bizarre, flight of ideas, not making sense, singing instead of answering questions, stating that she is from [place]. When I talked to her, she was more preoccupied, telling me that my clothes are nice and talking to herself, unpredictable, impulsive with a history of schizophrenia. PAST PSYCHIATRIC HISTORY: Schizophrenia. MEDICAL HISTORY: No known drug allergies with a history of incontinence. She is on oxybutynin. MEDICATIONS: Depakote 500 mg 3 times a day, Haldol ____ twice a day. She has hypothyroidism, on levothyroxine and she is also on oxybutynin and Seroquel 200 mg 4 times a day. FAMILY AND SOCIAL HISTORY: The patient is unable to give information. She came from [place] ____. She states that she was born in [place], not , no children. Denies substance abuse problem. MENTAL STATUS EXAMINATION: The patient is appropriately dressed, not very well groomed. She was smiling inappropriately, talking to herself, rambling speech, bizarre behavior, preoccupied with looked at my clothes and making comments on it and not paying attention to my question. She denies any current intent to harm herself or anybody, but she is quite psychotic, unpredictable, impulsive. I am unable to test her memory because of her psychosis. Her insight and judgment is impaired. IMPRESSION: AXIS I: Schizoaffective disorder, bipolar type. MEDICAL DIAGNOSES: Deferred to the medical doctor. Her assets, she wants to get help. Negative poor coping skills. INITIAL TREATMENT The patient can be started back on her medication. We will do group therapy, milieu therapy, individual therapy. ESTIMATED LENGTH OF STAY: 3-7 days. DISCHARGE CRITERIA: Decreasing psychosis, able to take care of herself. After discharge, outpatient treatment. [facility]# [id number]
[2017-09-19] MEDS: Lactobacillus Rhamnosus 10 Billion CFU Capsule PO SCH (15:51)
[2017-09-19] MEDS: Multivitamin Tab PO SCH (15:51)
[2017-09-19] MEDS ORDERED: Magnesium Hydroxide (MOM) 30 mL UDC PO SCH (21:00)
[2017-09-19] MEDS: Oxybutynin Chloride 5 mg ER Tab PO SCH (21:01)
[2017-09-20] MEDS: Levothyroxine 0.1 Mg Tab PO SCH (06:42)
[2017-09-20] MEDS: Multivitamin Tab PO SCH (08:22)
[2017-09-20] MEDS: Lactobacillus Rhamnosus 10 Billion CFU Capsule PO SCH (08:22)
--- NOTE | 2017-09-20 08:44 | General Progress Note ---
Subjective - Review of Systems Events since last encounter: no acute distress Objective - Physical Exam Vitals and I&O: Vital Signs Temp 0 F 09/20/17 07:05 Pulse 92 09/19/17 16:12 Resp 20 09/19/17 16:12 BP 128/72 09/19/17 16:12 Pulse Ox 94 09/19/17 16:12 Intake & Output 09/19/17 09/20/17 09/20/17 18:59 06:59 18:59 Intake Total 480 Balance 480 Intake: Oral 480 Other: # Voids 1 3 # Bowel Movements 0 Active Medications: Current Medications Acetaminophen (Tylenol) 650 mg PO Q4HR PRN PRN Reason: Mild Pain / Temp above 100 Stop: 11/17/17 16:47 Al Hydrox/Mg Hydrox/Simethicone (Maalox) 30 ml PO Q4HR PRN PRN Reason: GI DISTRESS Stop: 11/17/17 16:47 Divalproex Sodium (Depakote Dr) 500 mg PO TID ANTWAN PRN Reason: Protocol Stop: 11/18/17 08:59 Last Admin: 09/20/17 08:22 Dose: 500 mg Docusate Sodium (Colace) 100 mg PO DAILY ANTWAN Stop: 11/18/17 08:59 Last Admin: 09/20/17 08:21 Dose: 100 mg Haloperidol (Haldol) 4 mg PO BID ANTWAN PRN Reason: Protocol Stop: 11/18/17 08:59 Last Admin: 09/20/17 08:21 Dose: 4 mg Lactobacillus Rhamnosus (Culturelle) 1 each PO DAILY ANTWAN Stop: 11/18/17 08:59 Last Admin: 09/20/17 08:22 Dose: 1 each Levothyroxine Sodium (Synthroid) 0.1 mg PO QDAC ANTWAN Stop: 11/18/17 07:29 Last Admin: 09/20/17 06:42 Dose: 0.1 mg Lorazepam (Ativan) 1 mg PO Q6HR PRN; Protocol PRN Reason: Agitation Stop: 11/17/17 21:38 Last Admin: 09/19/17 15:55 Dose: 1 mg Magnesium Hydroxide (Milk Of Magnesia) 30 ml PO HS PRN PRN Reason: Constipation Multivitamins/Vitamin C (Theragran) 1 tab PO DAILY ANTWAN Stop: 11/18/17 08:59 Last Admin: 09/20/17 08:22 Dose: 1 tab Olanzapine (Zyprexa Zydis) 5 mg PO BID ANTWAN PRN Reason: Protocol Stop: 11/19/17 08:59 Oxybutynin Chloride (Ditropan Xl) 5 mg PO HS ANTWAN Stop: 11/18/17 20:59 Last Admin: 09/19/17 21:01 Dose: 5 mg Zolpidem Tartrate (Ambien) 5 mg PO HS PRN PRN Reason: Insomnia Stop: 11/17/17 16:47 General: Alert, No acute distress HEENT: Atraumatic, PERRLA Neck: Supple Cardiovascular: Regular rate, Normal S1 Assessment/Plan - Problem List Patient Problems: All Active Problems HTN (hypertension) (Acute) I10 Hypothyroid (Acute) E03.9 Psychosis (Acute) F29 Schizophrenia (Acute) F20.9 - Assessment Assessment: hypothyroidism htn ahd psychosis schizophrenia - Plan Plan: continue current orders cpm
[2017-09-20] MEDS: OLANZapine 5 mg Oral Disintegrating Tab PO SCH ×2 (10:07→16:17)
--- NOTE | 2017-09-20 20:55 | Progress Notes ---
DATE: 09/20/2017 Case was discussed with staff of the patient was records. The patient continues to be rambling, unable to make sense, psychotic, inappropriate in her answers, tangential, unable to participate in a meaningful conversation or make safe plan for self-care, unpredictable, impulsive, needing redirection. I will be initiating the patient on Zyprexa and take her off the Seroquel since it is not working for her and so far no side effects with the medication, no sedation, no nausea, no extrapyramidal symptoms. We will continue to work with the patient in group therapy, milieu therapy, adjust the medication as needed. JOB# [id number]
[2017-09-20] MEDS: Oxybutynin Chloride 5 mg ER Tab PO SCH (21:30)
[2017-09-21] MEDS: Levothyroxine 0.1 Mg Tab PO SCH (06:59)
[2017-09-21] MEDS: OLANZapine 5 mg Oral Disintegrating Tab PO SCH ×2 (08:58→17:35)
[2017-09-21] MEDS: Multivitamin Tab PO SCH (08:58)
[2017-09-21] MEDS: Lactobacillus Rhamnosus 10 Billion CFU Capsule PO SCH (08:58)
--- NOTE | 2017-09-21 15:34 | General Progress Note ---
Subjective - Review of Systems Events since last encounter: no change Objective - Results Recent Labs: Laboratory Last Values Valproic Acid 90.1 ug/mL (50.0-100.0) 09/21/17 12:15 - Physical Exam Vitals and I&O: Vital Signs Temp 97.6 F 09/20/17 14:00 Pulse 93 09/20/17 14:00 Resp 20 09/20/17 14:00 BP 166/87 09/20/17 14:00 Pulse Ox 98 09/20/17 14:00 Intake & Output 09/20/17 09/21/17 09/21/17 18:59 06:59 18:59 Intake Total 360 120 Balance 360 120 Intake: Oral 360 120 Other: # Voids 3 3 # Bowel Movements 0 Active Medications: Current Medications Acetaminophen (Tylenol) 650 mg PO Q4HR PRN PRN Reason: Mild Pain / Temp above 100 Stop: 11/17/17 16:47 Al Hydrox/Mg Hydrox/Simethicone (Maalox) 30 ml PO Q4HR PRN PRN Reason: GI DISTRESS Stop: 11/17/17 16:47 Divalproex Sodium (Depakote Dr) 500 mg PO TID ANTWAN PRN Reason: Protocol Stop: 11/18/17 08:59 Last Admin: 09/21/17 14:24 Dose: 500 mg Docusate Sodium (Colace) 100 mg PO DAILY ANTWAN Stop: 11/18/17 08:59 Last Admin: 09/21/17 08:58 Dose: 100 mg Haloperidol (Haldol) 4 mg PO BID ANTWAN PRN Reason: Protocol Stop: 11/18/17 08:59 Last Admin: 09/21/17 08:58 Dose: 4 mg Lactobacillus Rhamnosus (Culturelle) 1 each PO DAILY ANTWAN Stop: 09/26/17 06:00 Last Admin: 09/21/17 08:58 Dose: 1 each Levothyroxine Sodium (Synthroid) 0.1 mg PO QDAC ANTWAN Stop: 11/18/17 07:29 Last Admin: 09/21/17 06:59 Dose: 0.1 mg Lorazepam (Ativan) 1 mg PO Q6HR PRN; Protocol PRN Reason: Agitation Stop: 11/17/17 21:38 Last Admin: 09/20/17 18:04 Dose: 1 mg Magnesium Hydroxide (Milk Of Magnesia) 30 ml PO HS PRN PRN Reason: Constipation Multivitamins/Vitamin C (Theragran) 1 tab PO DAILY ANTWAN Stop: 11/18/17 08:59 Last Admin: 09/21/17 08:58 Dose: 1 tab Olanzapine (Zyprexa Zydis) 10 mg PO BID ANTWAN PRN Reason: Protocol Stop: 11/20/17 11:48 Oxybutynin Chloride (Ditropan Xl) 5 mg PO HS ANTWAN Stop: 11/18/17 20:59 Last Admin: 09/20/17 21:30 Dose: Not Given Zolpidem Tartrate (Ambien) 5 mg PO HS PRN PRN Reason: Insomnia Stop: 11/17/17 16:47 General: Alert, No acute distress HEENT: Atraumatic, PERRLA Neck: Supple Cardiovascular: Regular rate, Normal S1 Assessment/Plan - Problem List Patient Problems: All Active Problems HTN (hypertension) (Acute) I10 Hypothyroid (Acute) E03.9 Psychosis (Acute) F29 Schizophrenia (Acute) F20.9 - Assessment Assessment: hypothyroidism htn ahd psychosis schizophrenia - Plan Plan: continue current orders cpm
[2017-09-21] MEDS: Oxybutynin Chloride 5 mg ER Tab PO SCH (20:35)
--- NOTE | 2017-09-22 02:24 | Progress Notes ---
DATE: 09/21/2017 Case was discussed with staff of the patient, reviewed records. The patient continues to be rambling, psychotic, continues to have poor insight, unable to carry on a reasonable conversation, labile, and needing redirection. I have her on olanzapine 5 mg twice a day. I will be increasing the dose to 10 mg twice a day. ____ agitation, psychosis and no side effects with the medication, no sedation, no nausea, no extrapyramidal symptoms. She is also on Depakote 500 mg 3 times a day. I will be checking her level; and I will try later to take her off the Haldol and we will continue to work with the patient in group therapy, milieu therapy, adjust the medication as needed. JOB# [id number]
[2017-09-22] MEDS: Levothyroxine 0.1 Mg Tab PO SCH (06:36)
[2017-09-22] MEDS: OLANZapine 5 mg Oral Disintegrating Tab PO SCH ×2 (08:24→16:28)
[2017-09-22] MEDS: Multivitamin Tab PO SCH (08:24)
[2017-09-22] MEDS: Lactobacillus Rhamnosus 10 Billion CFU Capsule PO SCH (08:25)
[2017-09-22] MEDS: Oxybutynin Chloride 5 mg ER Tab PO SCH (21:19)
--- NOTE | 2017-09-22 22:05 | Internal Medicine Prog Note ---
Internal Medicine Subjective - Subjective Service Date: 09/22/17 Patient seen and examined:: with staff Patient is:: awake Per staff patient has:: tolerating meds Internal Medicine Objective - Results Recent Labs: Laboratory Last Values Valproic Acid 90.1 ug/mL (50.0-100.0) 09/21/17 12:15 - Physical Exam Vitals and I&O: Vital Signs Temp 98.1 F 09/22/17 14:00 Pulse 91 09/22/17 14:00 Resp 20 09/22/17 14:00 BP 116/63 09/22/17 14:00 Pulse Ox 98 09/22/17 14:00 Intake & Output 09/22/17 09/22/17 09/23/17 06:59 18:59 06:59 Intake Total 1120 Balance 1120 Intake: Oral 1120 Other: # Voids 3 # Bowel Movements 1 Active Medications: Current Medications Acetaminophen (Tylenol) 650 mg PO Q4HR PRN PRN Reason: Mild Pain / Temp above 100 Stop: 11/17/17 16:47 Al Hydrox/Mg Hydrox/Simethicone (Maalox) 30 ml PO Q4HR PRN PRN Reason: GI DISTRESS Stop: 11/17/17 16:47 Divalproex Sodium (Depakote Dr) 500 mg PO TID ANTWAN PRN Reason: Protocol Stop: 11/18/17 08:59 Last Admin: 09/22/17 21:20 Dose: 500 mg Docusate Sodium (Colace) 100 mg PO DAILY ANTWAN Stop: 11/18/17 08:59 Last Admin: 09/22/17 08:24 Dose: 100 mg Haloperidol (Haldol) 4 mg PO BID ANTWAN PRN Reason: Protocol Stop: 11/18/17 08:59 Last Admin: 09/22/17 16:27 Dose: 4 mg Lactobacillus Rhamnosus (Culturelle) 1 each PO DAILY ANTWAN Stop: 09/26/17 06:00 Last Admin: 09/22/17 08:25 Dose: 1 each Levothyroxine Sodium (Synthroid) 0.1 mg PO QDAC ANTWAN Stop: 11/18/17 07:29 Last Admin: 09/22/17 06:36 Dose: 0.1 mg Lorazepam (Ativan) 1 mg PO Q6HR PRN; Protocol PRN Reason: Agitation Stop: 11/17/17 21:38 Last Admin: 09/22/17 11:27 Dose: 1 mg Magnesium Hydroxide (Milk Of Magnesia) 30 ml PO HS PRN PRN Reason: Constipation Multivitamins/Vitamin C (Theragran) 1 tab PO DAILY ANTWAN Stop: 11/18/17 08:59 Last Admin: 09/22/17 08:24 Dose: 1 tab Olanzapine (Zyprexa Zydis) 10 mg PO BID ANTWAN PRN Reason: Protocol Stop: 11/20/17 11:48 Last Admin: 09/22/17 16:28 Dose: 10 mg Oxybutynin Chloride (Ditropan Xl) 5 mg PO HS ANTWAN Stop: 11/18/17 20:59 Last Admin: 09/22/17 21:19 Dose: 5 mg Zolpidem Tartrate (Ambien) 5 mg PO HS PRN PRN Reason: Insomnia Stop: 11/17/17 16:47 Last Admin: 09/22/17 21:19 Dose: 5 mg General: alert HEENT: NC/AT, PERRLA Neck: Supple Lungs: CTAB Abdomen: non-tender, non-distended, positive bowel sound Neurological: no change Internal Medicine Assmt/Plan - Assessment Assessment: hypothyroidism htn ahd psychosis schizophrenia - Plan Plan: continue current orders cpm
--- NOTE | 2017-09-22 22:58 | Progress Notes ---
DATE: 09/22/2017 Case was discussed with staff of the patient. The patient continues to be talking to herself. Continues to have poor insight, unpredictable, impulsive, needing redirection. I did increase her Zyprexa dose yesterday, so it is too early to make judgment. ____ I do plan to take her off the Haldol. She is still unpredictable, impulsive, needing redirection. Continues to have poor insight, psychotic. She is, however, not trying to harm herself in any way. I will be checking her Depakote level and so far no side effects, no sedation, no nausea, no extrapyramidal symptoms. I asked the staff to make sure she is compliant with her medications and we will continue to work with the patient in group therapy, milieu therapy, adjust medication as needed. JOB# [id number]
[2017-09-23] MEDS: Levothyroxine 0.1 Mg Tab PO SCH (06:33)
[2017-09-23] MEDS: Lactobacillus Rhamnosus 10 Billion CFU Capsule PO SCH (08:36)
[2017-09-23] MEDS: OLANZapine 5 mg Oral Disintegrating Tab PO SCH (08:36)
[2017-09-23] MEDS: Multivitamin Tab PO SCH (08:36)
[2017-09-23] MEDS: Oxybutynin Chloride 5 mg ER Tab PO SCH (20:32)
--- NOTE | 2017-09-24 03:26 | Progress Notes ---
DATE: SUBJECTIVE: The patient was seen, chart reviewed, discussed with staff. I saw this patient in the Med/Surg Unit. She remains bizarre, flight of ideas, nonsensical, rambling speech, history of schizophrenia, responding to internal stimuli, gravely disabled, restless, wandering around the unit, did not sleep too well last night. Her symptoms are ongoing. She is not safe for discharge. She remains psychotic. PLAN: We will continue to monitor. Given her ongoing symptoms, she is not safe for discharge at this time. She may benefit from dose increases of Zyprexa. [facility]# [id number]
[2017-09-24] MEDS: Levothyroxine 0.1 Mg Tab PO SCH (06:47)
--- NOTE | 2017-09-24 06:52 | Progress Notes ---
DATE: 09/23/2017 SUBJECTIVE: The patient was seen in her room, lying in the bed. The patient appears to be irritable and confused. According to the nurses, the patient has some episodes of sudden behavioral outbursts. Currently, the patient appears to be comfortable in no acute distress. OBJECTIVE: VITAL SIGNS: Temperature of 98.4, heart rate 94, blood pressure 116/63, respiration 19, and 97% on room air. ASSESSMENT: 1. Schizoaffective disorder. 2. Hypothyroidism. 3. Overactive bladder. 4. Osteoarthritis. 5. History of hypertension. PLAN: We will keep the patient inpatient in Psychiatric Unit. We will follow up with a psychiatrist to monitor the patient's condition and behavior. Treatment plans were discussed with the patient's nurse. Treatment plans were discussed with Dr. Fong. JOB# [id number]
--- NOTE | 2017-09-24 07:23 | General Progress Note ---
Subjective - Review of Systems Events since last encounter: patient irritable and confused Objective - Results Recent Labs: Laboratory Last Values Valproic Acid 90.1 ug/mL (50.0-100.0) 09/21/17 12:15 - Physical Exam Vitals and I&O: Vital Signs Temp 98.8 F 09/24/17 06:50 Pulse 82 09/24/17 06:50 Resp 16 09/24/17 06:50 BP 134/72 09/24/17 06:50 Pulse Ox 98 09/24/17 06:50 Intake & Output 09/23/17 09/24/17 09/24/17 18:59 06:59 18:59 Intake Total 1200 480 Balance 1200 480 Intake: Oral 1200 480 Other: # Voids 2 # Bowel Movements 1 Active Medications: Current Medications Acetaminophen (Tylenol) 650 mg PO Q4HR PRN PRN Reason: Mild Pain / Temp above 100 Stop: 11/17/17 16:47 Al Hydrox/Mg Hydrox/Simethicone (Maalox) 30 ml PO Q4HR PRN PRN Reason: GI DISTRESS Stop: 11/17/17 16:47 Divalproex Sodium (Depakote Dr) 500 mg PO TID ANTWAN PRN Reason: Protocol Stop: 11/18/17 08:59 Last Admin: 09/23/17 20:32 Dose: 500 mg Docusate Sodium (Colace) 100 mg PO DAILY [facility] Stop: 11/18/17 08:59 Last Admin: 09/23/17 08:35 Dose: 100 mg Haloperidol (Haldol) 4 mg PO BID ANTWAN PRN Reason: Protocol Stop: 11/18/17 08:59 Last Admin: 09/23/17 17:05 Dose: 4 mg Lactobacillus Rhamnosus (Culturelle) 1 each PO DAILY ANTWAN Stop: 09/26/17 06:00 Last Admin: 09/23/17 08:36 Dose: 1 each Levothyroxine Sodium (Synthroid) 0.1 mg PO QDAC [facility] Stop: 11/18/17 07:29 Last Admin: 09/24/17 06:47 Dose: 0.1 mg Lorazepam (Ativan) 1 mg PO Q6HR PRN; Protocol PRN Reason: Agitation Stop: 11/17/17 21:38 Last Admin: 09/24/17 00:28 Dose: 1 mg Magnesium Hydroxide (Milk Of Magnesia) 30 ml PO HS PRN PRN Reason: Constipation Multivitamins/Vitamin C (Theragran) 1 tab PO DAILY ANTWAN Stop: 11/18/17 08:59 Last Admin: 09/23/17 08:36 Dose: 1 tab Olanzapine (Zyprexa Zydis) 10 mg PO DAILY ANTWAN PRN Reason: Protocol Stop: 11/22/17 08:59 Last Admin: 09/23/17 08:36 Dose: 10 mg Olanzapine (Zyprexa) 15 mg PO HS ANTWAN PRN Reason: Protocol Stop: 11/22/17 20:59 Last Admin: 09/23/17 20:32 Dose: 15 mg Oxybutynin Chloride (Ditropan Xl) 5 mg PO HS ANTWAN Stop: 11/18/17 20:59 Last Admin: 09/23/17 20:32 Dose: 5 mg Zolpidem Tartrate (Ambien) 5 mg PO HS PRN PRN Reason: Insomnia Stop: 11/17/17 16:47 Last Admin: 09/23/17 20:32 Dose: 5 mg General: Alert, No acute distress HEENT: Atraumatic, PERRLA Neck: Supple Cardiovascular: Regular rate, Normal S1 Assessment/Plan - Problem List Patient Problems: All Active Problems HTN (hypertension) (Acute) I10 Hypothyroid (Acute) E03.9 Psychosis (Acute) F29 Schizophrenia (Acute) F20.9 - Assessment Assessment: hypothyroidism htn ahd psychosis schizophrenia - Plan Plan: continue current orders cpm
[2017-09-24] MEDS: OLANZapine 5 mg Oral Disintegrating Tab PO SCH (09:15)
[2017-09-24] MEDS: Lactobacillus Rhamnosus 10 Billion CFU Capsule PO SCH (09:15)
[2017-09-24] MEDS: Multivitamin Tab PO SCH (09:16)
[2017-09-24] MEDS: Oxybutynin Chloride 5 mg ER Tab PO SCH (20:55)
--- NOTE | 2017-09-25 03:15 | Progress Notes ---
DATE: 09/24/2017 SUBJECTIVE: The patient is seen, chart reviewed, discussed with staff. The patient continuing to wander the hallways, mumbling to herself, nonsensical statements ____ flight of ideas, still not sleeping very well, symptoms ongoing, gravely disabled, cannot be cared for at a lower level of care. Medications were noted. No side effects. No EPS for example. ASSESSMENT: The patient remains bizarre, disorganized, symptomatic. PLAN: Given her ongoing symptoms, she is not safe for discharge. We will continue to monitor. Given recent dose increase of Zyprexa, we will continue at current dose. JOB# [id number]
[2017-09-25] MEDS: Levothyroxine 0.1 Mg Tab PO SCH (06:37)
[2017-09-25] MEDS: Lactobacillus Rhamnosus 10 Billion CFU Capsule PO SCH (08:48)
[2017-09-25] MEDS: Multivitamin Tab PO SCH (08:48)
[2017-09-25] MEDS: OLANZapine 5 mg Oral Disintegrating Tab PO SCH (08:48)
[2017-09-25] MEDS ORDERED: OLANZapine 5 mg Oral Disintegrating Tab PO SCH (12:02)
[2017-09-25] MEDS: OLANZapine ODT 10 MG, OLANZapine ODT 5 MG PO SCH (14:32)
--- NOTE | 2017-09-25 19:58 | Internal Medicine Prog Note ---
Internal Medicine Subjective - Subjective Patient is:: awake Per staff patient has:: tolerating meds Internal Medicine Objective - Results Recent Labs: Laboratory Last Values Valproic Acid 90.1 ug/mL (50.0-100.0) 09/21/17 12:15 - Physical Exam Vitals and I&O: Vital Signs Temp 97.1 F 09/25/17 15:49 Pulse 90 09/25/17 15:49 Resp 18 09/25/17 15:49 BP 133/81 09/25/17 15:49 Pulse Ox 99 09/25/17 15:49 Intake & Output 09/25/17 09/25/17 09/26/17 06:59 18:59 06:59 Intake Total 600 Balance 600 Intake: Oral 600 Other: # Voids 2 # Bowel Movements 0 Active Medications: Current Medications Acetaminophen (Tylenol) 650 mg PO Q4HR PRN PRN Reason: Mild Pain / Temp above 100 Stop: 11/17/17 16:47 Al Hydrox/Mg Hydrox/Simethicone (Maalox) 30 ml PO Q4HR PRN PRN Reason: GI DISTRESS Stop: 11/17/17 16:47 Divalproex Sodium (Depakote Dr) 500 mg PO TID ANTWAN PRN Reason: Protocol Stop: 11/18/17 08:59 Last Admin: 09/25/17 14:31 Dose: 500 mg Docusate Sodium (Colace) 100 mg PO DAILY [facility] Stop: 11/18/17 08:59 Last Admin: 09/25/17 08:48 Dose: 100 mg Furosemide (Lasix) 20 mg PO DAILY ANTWAN Stop: 09/26/17 09:01 Last Admin: 09/25/17 08:48 Dose: 20 mg Haloperidol (Haldol) 4 mg PO BID ANTWAN PRN Reason: Protocol Stop: 11/18/17 08:59 Last Admin: 09/25/17 17:00 Dose: 4 mg Lactobacillus Rhamnosus (Culturelle) 1 each PO DAILY ANTWAN Stop: 09/26/17 06:00 Last Admin: 09/25/17 08:48 Dose: 1 each Levothyroxine Sodium (Synthroid) 0.1 mg PO QDAC ANTWAN Stop: 11/18/17 07:29 Last Admin: 09/25/17 06:37 Dose: 0.1 mg Lorazepam (Ativan) 1 mg PO Q6HR PRN; Protocol PRN Reason: Agitation Stop: 11/17/17 21:38 Last Admin: 09/25/17 08:54 Dose: 1 mg Magnesium Hydroxide (Milk Of Magnesia) 30 ml PO HS PRN PRN Reason: Constipation Multivitamins/Vitamin C (Theragran) 1 tab PO DAILY ANTWAN Stop: 11/18/17 08:59 Last Admin: 09/25/17 08:48 Dose: 1 tab Olanzapine (Zyprexa) 15 mg PO HS ANTWAN PRN Reason: Protocol Stop: 11/22/17 20:59 Last Admin: 09/24/17 20:55 Dose: 15 mg Olanzapine 10 mg/ Olanzapine 5 (mg) 15 mg PO DAILY ANTWAN Stop: 11/24/17 12:59 Last Admin: 09/25/17 14:32 Dose: 15 mg Oxybutynin Chloride (Ditropan Xl) 5 mg PO HS ANTWAN Stop: 11/18/17 20:59 Last Admin: 09/24/17 20:55 Dose: 5 mg Zolpidem Tartrate (Ambien) 5 mg PO HS PRN PRN Reason: Insomnia Stop: 11/17/17 16:47 Last Admin: 09/24/17 21:09 Dose: 5 mg General: alert HEENT: NC/AT, PERRLA Neck: Supple Lungs: CTAB Abdomen: non-tender, non-distended, positive bowel sound Neurological: no change Internal Medicine Assmt/Plan - Assessment Assessment: hypothyroidism htn ahd psychosis schizophrenia - Plan Plan: continue current orders cpm
[2017-09-25] MEDS: Oxybutynin Chloride 5 mg ER Tab PO SCH (21:03)
--- NOTE | 2017-09-25 22:35 | Progress Notes ---
DATE: 09/25/2017 Case was discussed with staff of patient, reviewed records. The patient continues to be easily agitated, continues to be psychotic, talking to herself, loud, unpredictable, impulsive, needing redirection. She is compliant with the medication with no side effects, no sedation, no nausea. Dr. Dodd increased her dose to 10 mg in the morning, 60 mg at bedtime. I will be increasing the dose on the Zyprexa to 15 mg twice a day and so far no side effects, no sedation, no nausea, no extrapyramidal symptoms. We will continue to work with the patient in group therapy, milieu therapy, and adjust medication as needed. JOB# [id number]
[2017-09-26] MEDS: Levothyroxine 0.1 Mg Tab PO SCH (06:56)
[2017-09-26] MEDS: OLANZapine ODT 10 MG, OLANZapine ODT 5 MG PO SCH (09:31)
[2017-09-26] MEDS: Multivitamin Tab PO SCH (09:32)
--- NOTE | 2017-09-26 09:55 | General Progress Note ---
Subjective - Review of Systems Events since last encounter: patient continues to be psychotic denies pain Objective - Results Recent Labs: Laboratory Last Values Valproic Acid 90.1 ug/mL (50.0-100.0) 09/21/17 12:15 - Physical Exam Vitals and I&O: Vital Signs Temp 97.7 F 09/26/17 06:06 Pulse 103 09/26/17 06:06 Resp 20 09/26/17 06:06 BP 123/71 09/26/17 06:06 Pulse Ox 96 09/26/17 06:06 Intake & Output 09/25/17 09/26/17 09/26/17 18:59 06:59 18:59 Intake Total 300 Balance 300 Intake: Oral 300 Other: # Voids 2 # Bowel Movements 1 Active Medications: Current Medications Acetaminophen (Tylenol) 650 mg PO Q4HR PRN PRN Reason: Mild Pain / Temp above 100 Stop: 11/17/17 16:47 Al Hydrox/Mg Hydrox/Simethicone (Maalox) 30 ml PO Q4HR PRN PRN Reason: GI DISTRESS Stop: 11/17/17 16:47 Divalproex Sodium (Depakote Dr) 500 mg PO TID ANTWAN PRN Reason: Protocol Stop: 11/18/17 08:59 Last Admin: 09/25/17 21:03 Dose: 500 mg Docusate Sodium (Colace) 100 mg PO DAILY ANTWAN Stop: 11/18/17 08:59 Last Admin: 09/25/17 08:48 Dose: 100 mg Haloperidol (Haldol) 4 mg PO BID ANTWAN PRN Reason: Protocol Stop: 11/18/17 08:59 Last Admin: 09/25/17 17:00 Dose: 4 mg Levothyroxine Sodium (Synthroid) 0.1 mg PO QDAC ANTWAN Stop: 11/18/17 07:29 Last Admin: 09/26/17 06:56 Dose: 0.1 mg Lorazepam (Ativan) 1 mg PO Q6HR PRN; Protocol PRN Reason: Agitation Stop: 11/17/17 21:38 Last Admin: 09/25/17 08:54 Dose: 1 mg Magnesium Hydroxide (Milk Of Magnesia) 30 ml PO HS PRN PRN Reason: Constipation Multivitamins/Vitamin C (Theragran) 1 tab PO DAILY [facility] Stop: 11/18/17 08:59 Last Admin: 09/25/17 08:48 Dose: 1 tab Olanzapine (Zyprexa) 15 mg PO HS ANTWAN PRN Reason: Protocol Stop: 11/22/17 20:59 Last Admin: 09/25/17 21:03 Dose: 15 mg Olanzapine 10 mg/ Olanzapine 5 (mg) 15 mg PO DAILY ANTW[facility] Stop: 11/24/17 12:59 Last Admin: 09/25/17 14:32 Dose: 15 mg Oxybutynin Chloride (Ditropan Xl) 5 mg PO HS ANTWAN Stop: 11/18/17 20:59 Last Admin: 09/25/17 21:03 Dose: 5 mg Zolpidem Tartrate (Ambien) 5 mg PO HS PRN PRN Reason: Insomnia Stop: 11/17/17 16:47 Last Admin: 09/24/17 21:09 Dose: 5 mg General: Alert, No acute distress HEENT: Atraumatic, PERRLA Neck: Supple Cardiovascular: Regular rate, Normal S1 Assessment/Plan - Problem List Patient Problems: All Active Problems HTN (hypertension) (Acute) I10 Hypothyroid (Acute) E03.9 Psychosis (Acute) F29 Schizophrenia (Acute) F20.9 - Assessment Assessment: hypothyroidism htn ahd psychosis schizophrenia - Plan Plan: continue current orders cpm
[2017-09-26] MEDS: Oxybutynin Chloride 5 mg ER Tab PO SCH (21:12)
--- NOTE | 2017-09-27 02:02 | Progress Notes ---
DATE: Case was discussed with staff of the patient, reviewed records. The patient continues to be rambling, easily agitated, irritable, needing redirection, unpredictable and impulsive. I did increase her Zyprexa dose yesterday with no side effects so far, no sedation, no nausea, no extrapyramidal symptoms. There is some bruise on her right hip and the medical doctor will be taking care of it and we will continue to work with the patient in group therapy, milieu therapy, and adjust medications as needed. JOB# [id number]
[2017-09-27] MEDS: Levothyroxine 0.1 Mg Tab PO SCH (06:40)
[2017-09-27] MEDS: OLANZapine ODT 10 MG, OLANZapine ODT 5 MG PO SCH (08:13)
[2017-09-27] MEDS: Multivitamin Tab PO SCH (08:13)
--- NOTE | 2017-09-27 09:23 | General Progress Note ---
Subjective - Review of Systems Events since last encounter: patient still irritable and easily agitated Objective - Results Recent Labs: Laboratory Last Values Valproic Acid 90.1 ug/mL (50.0-100.0) 09/21/17 12:15 - Physical Exam Vitals and I&O: Vital Signs Temp 98.2 F 09/27/17 06:00 Pulse 95 09/27/17 06:00 Resp 19 09/27/17 06:00 BP 132/66 09/27/17 06:00 Pulse Ox 97 09/27/17 06:00 Active Medications: Current Medications Acetaminophen (Tylenol) 650 mg PO Q4HR PRN PRN Reason: Mild Pain / Temp above 100 Stop: 11/17/17 16:47 Al Hydrox/Mg Hydrox/Simethicone (Maalox) 30 ml PO Q4HR PRN PRN Reason: GI DISTRESS Stop: 11/17/17 16:47 Divalproex Sodium (Depakote Dr) 500 mg PO TID ANTWAN PRN Reason: Protocol Stop: 11/18/17 08:59 Last Admin: 09/27/17 08:13 Dose: 500 mg Docusate Sodium (Colace) 100 mg PO DAILY ANTWAN Stop: 11/18/17 08:59 Last Admin: 09/27/17 08:13 Dose: 100 mg Haloperidol (Haldol) 4 mg PO BID ANTWAN PRN Reason: Protocol Stop: 11/18/17 08:59 Last Admin: 09/27/17 08:59 Dose: 4 mg Levothyroxine Sodium (Synthroid) 0.1 mg PO QDAC ANTWAN Stop: 11/18/17 07:29 Last Admin: 09/27/17 06:40 Dose: 0.1 mg Lorazepam (Ativan) 1 mg PO Q6HR PRN; Protocol PRN Reason: Agitation Stop: 11/17/17 21:38 Last Admin: 09/26/17 21:13 Dose: 1 mg Magnesium Hydroxide (Milk Of Magnesia) 30 ml PO HS PRN PRN Reason: Constipation Multivitamins/Vitamin C (Theragran) 1 tab PO DAILY ANTWAN Stop: 11/18/17 08:59 Last Admin: 09/27/17 08:13 Dose: 1 tab Olanzapine (Zyprexa) 15 mg PO HS ANTWAN PRN Reason: Protocol Stop: 11/22/17 20:59 Last Admin: 09/26/17 21:12 Dose: 15 mg Olanzapine 10 mg/ Olanzapine 5 (mg) 15 mg PO DAILY ANTWAN Stop: 11/24/17 12:59 Last Admin: 09/27/17 08:13 Dose: 15 mg Oxybutynin Chloride (Ditropan Xl) 5 mg PO HS ANTWAN Stop: 11/18/17 20:59 Last Admin: 09/26/17 21:12 Dose: 5 mg Zolpidem Tartrate (Ambien) 5 mg PO HS PRN PRN Reason: Insomnia Stop: 11/17/17 16:47 Last Admin: 09/24/17 21:09 Dose: 5 mg General: Alert, No acute distress HEENT: Atraumatic, PERRLA Neck: Supple Cardiovascular: Regular rate, Normal S1 Assessment/Plan - Problem List Patient Problems: All Active Problems HTN (hypertension) (Acute) I10 Hypothyroid (Acute) E03.9 Psychosis (Acute) F29 Schizophrenia (Acute) F20.9 - Assessment Assessment: hypothyroidism htn ahd psychosis schizophrenia - Plan Plan: continue current orders cpm Nutritional Asmnt/Malnutr-PDOC - Dietary Evaluation Malnutrition Findings (Please click <Entered> for more info): Nutritional Asmnt/Malnutrition Start: 09/26/17 12: 43 Text: Status: Complete Freq: Document 09/26/17 12:43 JESSA (Rec: 09/26/17 13:03 JESSA [id number]) Nutritional Asmnt/Malnutrition Patient General Information Nutritional Screening LR Diagnosis psychosis, schizophrenia Pertinent Medical Hx/Surgical Hx hypothyroidism, cellulitis on right second toe, HTN, AHD, CAD Subjective Information Pt is disoriented, easilly irritated, not appropriate to visit. Pt was living at skilled nursing per H&P. Current Diet Order/ Nutrition Support Regular Patient / S.O Not Indicated Pertinent Medications Colace, Synthroid, Vitamin C Pertinent Labs no labs available Nutritional Hx/Data Height 1.65 m Height (Calculated Centimeters) 165.1 Current Weight (lbs) 88.133 kg Weight (Calculated Kilograms) 88.1 Weight (Calculated Grams) 95372.0 [place] Body Weight 125 % [place] Body Weight 155 Weight Status Obese GI Symptoms Food Allergies No Skin Integrity/Comment: intact Current %PO Good (75-100%) Estimated Nutritional Goals BEE in Kcals: Adj wt of IBW Calories/Kcals/Kg 25-30 Kcals Calculated 8950-4687 Protein: Adj wt of IBW Protein g/k.8-1 Protein Calculated 52-65 Fluid: ml 1614-1936ml (1ml/kg) Nutritional Problem No current Nutrition Prob Problem N/A Etiology N/A Signs/Symptoms: N/A Malnutrition Alert Protein-Calorie Malnutrition N/A Is there a minimum of two criteria No selected? Query Text:Check all the applicable criteria. A minimum of two criteria are recommended for diagnosis of either severe or non-severe malnutrition. Intervention/Recommendation Comments continue regular diet as ordered Expected Outcomes/Goals Expected Outcomes/Goals PO intake >75% wt to remain stable skin to remain intact
--- NOTE | 2017-09-27 09:24 | Progress Notes ---
DATE: 09/27/2017 Case was discussed with staff of the patient, reviewed records. The patient continues to be rambling, talking to herself. Continues to be unpredictable, impulsive, needing redirection. Continues to have poor insight. Continues to be unable to make safe plan for self-care. So far, she is compliant with the medication with no side effect, no sedation, no nausea, no extrapyramidal symptoms. Tolerating increase in olanzapine to 50 mg at bedtime. She is also on Haldol and Depakote. Her Depakote level is 90.1, which is within acceptable therapeutic range. We will continue to work with the patient in group therapy, milieu therapy, and adjust medications as needed. JOB# [id number]
[2017-09-27] MEDS: Oxybutynin Chloride 5 mg ER Tab PO SCH (20:48)
[2017-09-28] MEDS: Levothyroxine 0.1 Mg Tab PO SCH (06:41)
[2017-09-28] MEDS: Multivitamin Tab PO SCH (08:20)
[2017-09-28] MEDS: OLANZapine ODT 10 MG, OLANZapine ODT 5 MG PO SCH (08:21)
--- NOTE | 2017-09-28 09:15 | General Progress Note ---
Subjective - Review of Systems Events since last encounter: no change , denies pain Objective - Results Recent Labs: Laboratory Last Values Valproic Acid 90.1 ug/mL (50.0-100.0) 09/21/17 12:15 - Physical Exam Vitals and I&O: Vital Signs Temp 97.7 F 09/28/17 06:41 Pulse 96 09/28/17 06:41 Resp 21 09/28/17 06:41 BP 139/79 09/28/17 06:41 Pulse Ox 97 09/28/17 06:41 Intake & Output 09/27/17 09/28/17 09/28/17 18:59 06:59 18:59 Intake Total 800 120 Balance 800 120 Intake: Oral 800 120 Other: # Voids 3 3 # Bowel Movements 1 Stool Characteristics Soft Formed Active Medications: Current Medications Acetaminophen (Tylenol) 650 mg PO Q4HR PRN PRN Reason: Mild Pain / Temp above 100 Stop: 11/17/17 16:47 Al Hydrox/Mg Hydrox/Simethicone (Maalox) 30 ml PO Q4HR PRN PRN Reason: GI DISTRESS Stop: 11/17/17 16:47 Divalproex Sodium (Depakote Dr) 500 mg PO TID ANTWAN PRN Reason: Protocol Stop: 11/18/17 08:59 Last Admin: 09/28/17 08:26 Dose: 500 mg Docusate Sodium (Colace) 100 mg PO DAILY REPLACED BY [facility] Stop: 11/18/17 08:59 Last Admin: 09/28/17 08:20 Dose: 100 mg Haloperidol (Haldol) 4 mg PO BID ANTWAN PRN Reason: Protocol Stop: 11/18/17 08:59 Last Admin: 09/28/17 08:21 Dose: 4 mg Levothyroxine Sodium (Synthroid) 0.1 mg PO QDAC ANTWAN Stop: 11/18/17 07:29 Last Admin: 09/28/17 06:41 Dose: 0.1 mg Lorazepam (Ativan) 1 mg PO Q6HR PRN; Protocol PRN Reason: Agitation Stop: 11/17/17 21:38 Last Admin: 09/26/17 21:13 Dose: 1 mg Magnesium Hydroxide (Milk Of Magnesia) 30 ml PO HS PRN PRN Reason: Constipation Multivitamins/Vitamin C (Theragran) 1 tab PO DAILY [facility]PL[facility] Stop: 11/18/17 08:59 Last Admin: 09/28/17 08:20 Dose: 1 tab Olanzapine (Zyprexa) 15 mg PO HS ANTWAN PRN Reason: Protocol Stop: 11/22/17 20:59 Last Admin: 09/27/17 20:48 Dose: 15 mg Olanzapine 10 mg/ Olanzapine 5 (mg) 15 mg PO DAILY ANTWAN Stop: 11/24/17 12:59 Last Admin: 09/28/17 08:21 Dose: 15 mg Oxybutynin Chloride (Ditropan Xl) 5 mg PO HS ANTWAN Stop: 11/18/17 20:59 Last Admin: 09/27/17 20:48 Dose: 5 mg Zolpidem Tartrate (Ambien) 5 mg PO HS PRN PRN Reason: Insomnia Stop: 11/17/17 16:47 Last Admin: 09/27/17 20:48 Dose: 5 mg General: Alert, No acute distress HEENT: Atraumatic, PERRLA Neck: Supple Cardiovascular: Regular rate, Normal S1 Assessment/Plan - Problem List Patient Problems: All Active Problems HTN (hypertension) (Acute) I10 Hypothyroid (Acute) E03.9 Psychosis (Acute) F29 Schizophrenia (Acute) F20.9 - Assessment Assessment: hypothyroidism htn ahd psychosis schizophrenia - Plan Plan: continue current orders cpm Nutritional Asmnt/Malnutr-PDOC - Dietary Evaluation Malnutrition Findings (Please click <Entered> for more info): Nutritional Asmnt/Malnutrition Start: 09/26/17 12: 43 Text: Status: Complete Freq: Document 09/26/17 12:43 JESSA (Rec: 09/26/17 13:03 JESSA [id number]) Nutritional Asmnt/Malnutrition Patient General Information Nutritional Screening LR Diagnosis psychosis, schizophrenia Pertinent Medical Hx/Surgical Hx hypothyroidism, cellulitis on right second toe, HTN, AHD, CAD Subjective Information Pt is disoriented, easilly irritated, not appropriate to visit. Pt [facility] living [facility] per H[facility]P. Current Diet Order/ Nutrition Support Regular Patient / S.O Not Indicated Pertinent Medications Colace, Synthroid, Vitamin C Pertinent Labs no labs available Nutritional Hx/Data Height 1.65 m Height (Calculated Centimeters) 165.1 Current Weight (lbs) 88.133 kg Weight (Calculated Kilograms) 88.1 Weight (Calculated Grams) 77954.0 [place] Body Weight 125 % [place] Body Weight 155 Weight Status Obese GI Symptoms Food Allergies No Skin Integrity/Comment: intact Current %PO Good (75-100%) Estimated Nutritional Goals BEE in Kcals: Adj wt of IBW Calories/Kcals/Kg 25-30 Kcals Calculated 8537-8139 Protein: Adj wt of IBW Protein g/k.8-1 Protein Calculated 52-65 Fluid: ml 1614-1936ml (1ml/kg) Nutritional Problem No current Nutrition Prob Problem N/A Etiology N/A Signs/Symptoms: N/A Malnutrition Alert Protein-Calorie Malnutrition N/A Is there a minimum of two criteria No selected? Query Text:Check all the applicable criteria. A minimum of two criteria are recommended for diagnosis of either severe or non-severe malnutrition. Intervention/Recommendation Comments continue regular diet as ordered Expected Outcomes/Goals Expected Outcomes/Goals PO intake >75% wt to remain stable skin to remain intact
--- NOTE | 2017-09-28 14:21 | Progress Notes ---
DATE: 09/28/2017 Case was discussed with staff of his records. The patient finally was convinced a day to take a shower. She is still rambling, walking the hallways, talking to herself, unpredictable, impulsive needing redirection very poor insight. She is compliant with the medication with no side effects, no sedation, no nausea, no extrapyramidal symptoms. She tolerates the increase in Zyprexa with no side effects, no sedation, no nausea, no extrapyramidal symptoms and she is currently on 50 mg twice a day and her Depakote level is 90.1, which is within acceptable therapeutic range. We will continue to work with the patient in group therapy, milieu therapy, adjust medication as needed. JOB# [id number]
[2017-09-28] MEDS: Oxybutynin Chloride 5 mg ER Tab PO SCH (21:04)
[2017-09-29] MEDS: Levothyroxine 0.1 Mg Tab PO SCH (06:32)
[2017-09-29] MEDS: OLANZapine ODT 10 MG, OLANZapine ODT 5 MG PO SCH (08:41)
[2017-09-29] MEDS: Multivitamin Tab PO SCH (08:41)
--- NOTE | 2017-09-29 11:30 | Internal Medicine Prog Note ---
Internal Medicine Subjective - Subjective Service Date: 09/29/17 Patient is:: awake Per staff patient has:: tolerating meds Internal Medicine Objective - Results Recent Labs: Laboratory Last Values Valproic Acid 90.1 ug/mL (50.0-100.0) 09/21/17 12:15 - Physical Exam Vitals and I&O: Vital Signs Temp 97.6 F 09/29/17 00:54 Pulse 117 09/29/17 00:54 Resp 18 09/29/17 00:54 BP 139/82 09/29/17 00:54 Pulse Ox 93 09/29/17 00:54 Active Medications: Current Medications Acetaminophen (Tylenol) 650 mg PO Q4HR PRN PRN Reason: Mild Pain / Temp above 100 Stop: 11/17/17 16:47 Al Hydrox/Mg Hydrox/Simethicone (Maalox) 30 ml PO Q4HR PRN PRN Reason: GI DISTRESS Stop: 11/17/17 16:47 Benztropine Mesylate (Cogentin) 1 mg PO BID [facility] Stop: 11/28/17 16:59 Divalproex Sodium (Depakote Dr) 500 mg PO TID ANTWAN PRN Reason: Protocol Stop: 11/18/17 08:59 Last Admin: 09/29/17 08:40 Dose: 500 mg Docusate Sodium (Colace) 100 mg PO DAILY [facility] Stop: 11/18/17 08:59 Last Admin: 09/29/17 08:40 Dose: 100 mg Haloperidol (Haldol) 4 mg PO BID ANTWAN PRN Reason: Protocol Stop: 11/18/17 08:59 Last Admin: 09/29/17 08:40 Dose: 4 mg Levothyroxine Sodium (Synthroid) 0.1 mg PO QDAC ANTWAN Stop: 11/18/17 07:29 Last Admin: 09/29/17 06:32 Dose: 0.1 mg Lorazepam (Ativan) 1 mg PO Q6HR PRN; Protocol PRN Reason: Agitation Stop: 11/17/17 21:38 Last Admin: 09/29/17 09:06 Dose: 1 mg Magnesium Hydroxide (Milk Of Magnesia) 30 ml PO HS PRN PRN Reason: Constipation Multivitamins/Vitamin C (Theragran) 1 tab PO DAILY [facility] Stop: 11/18/17 08:59 Last Admin: 09/29/17 08:41 Dose: 1 tab Olanzapine (Zyprexa) 15 mg PO HS ANTWAN PRN Reason: Protocol Stop: 11/22/17 20:59 Last Admin: 09/28/17 21:04 Dose: 15 mg Olanzapine 10 mg/ Olanzapine 5 (mg) 15 mg PO DAILY ANTWAN Stop: 11/24/17 12:59 Last Admin: 09/29/17 08:41 Dose: 15 mg Oxybutynin Chloride (Ditropan Xl) 5 mg PO HS ANTWAN Stop: 11/18/17 20:59 Last Admin: 09/28/17 21:04 Dose: 5 mg Zolpidem Tartrate (Ambien) 5 mg PO HS PRN PRN Reason: Insomnia Stop: 11/17/17 16:47 Last Admin: 09/28/17 21:04 Dose: 5 mg General: alert HEENT: NC/AT, PERRLA Neck: Supple Lungs: CTAB Abdomen: non-tender, non-distended, positive bowel sound Neurological: no change Internal Medicine Assmt/Plan - Assessment Assessment: hypothyroidism htn ahd psychosis schizophrenia - Plan Plan: monitor BP safety precautions continue current plan of care Nutritional Asmnt/Malnutr-PDOC - Dietary Evaluation Malnutrition Findings (Please click <Entered> for more info): Nutritional Asmnt/Malnutrition Start: 09/26/17 12: 43 Text: Status: Complete Freq: Document 09/26/17 12:43 NILDAG (Rec: 09/26/17 13:03 [id number]) Nutritional Asmnt/Malnutrition Patient General Information Nutritional Screening LR Diagnosis psychosis, schizophrenia Pertinent Medical Hx/Surgical Hx hypothyroidism, cellulitis on right second toe, HTN, AHD, CAD Subjective Information Pt is disoriented, easilly irritated, not appropriate to visit. Pt was living at [facility] per H&P. Current Diet Order/ Nutrition Support Regular Patient / S.O Not Indicated Pertinent Medications Colace, Synthroid, Vitamin C Pertinent Labs no labs available Nutritional Hx/Data Height 5 ft 5 in Height (Calculated Centimeters) 165.1 Current Weight (lbs) 194 lb 4.8 oz Weight (Calculated Kilograms) 88.1 Weight (Calculated Grams) 01805.0 [place] Body Weight 125 % [place] Body Weight 155 Weight Status Obese GI Symptoms Food Allergies No Skin Integrity/Comment: intact Current %PO Good (75-100%) Estimated Nutritional Goals BEE in Kcals: Adj wt of IBW Calories/Kcals/Kg 25-30 Kcals Calculated 3076-2227 Protein: Adj wt of IBW Protein g/k.8-1 Protein Calculated 52-65 Fluid: ml 1614-1936ml (1ml/kg) Nutritional Problem No current Nutrition Prob Problem N/A Etiology N/A Signs/Symptoms: N/A Malnutrition Alert Protein-Calorie Malnutrition N/A Is there a minimum of two criteria No selected? Query Text:Check all the applicable criteria. A minimum of two criteria are recommended for diagnosis of either severe or non-severe malnutrition. Intervention/Recommendation Comments continue regular diet as ordered Expected Outcomes/Goals Expected Outcomes/Goals PO intake >75% wt to remain stable skin to remain intact
--- NOTE | 2017-09-29 12:07 | Progress Notes ---
DATE: 09/29/2017 Case was discussed with staff and reviewed the records. The patient continues rambling. She also has been extremely restless. Continues to have poor insight, continues to be unable to make safe plan for self-care. Unpredictable impulsive needing redirection. It seem like she has been restless and that may have been because of the Zyprexa. I will be adding Cogentin to her medication to help with her symptoms and still unable to participate in a meaningful conversation or make a plan for self-care and we will continue outpatient group therapy, milieu therapy, adjust medication as needed. JOB# [id number]
[2017-09-29] MEDS: Oxybutynin Chloride 5 mg ER Tab PO SCH (20:47)
[2017-09-30] MEDS: Levothyroxine 0.1 Mg Tab PO SCH (06:40)
[2017-09-30] MEDS: Benztropine 1 MG TAB PO SCH ×2 (08:15→17:42)
[2017-09-30] MEDS: Multivitamin Tab PO SCH (08:15)
[2017-09-30] MEDS: Oxybutynin Chloride 5 mg ER Tab PO SCH (20:36)
[2017-10-01] MEDS: Levothyroxine 0.1 Mg Tab PO SCH (06:31)
--- NOTE | 2017-10-01 07:18 | General Progress Note ---
Subjective - Review of Systems Events since last encounter: patient awake alert in no distress Objective - Results Recent Labs: Laboratory Last Values Valproic Acid 90.1 ug/mL (50.0-100.0) 09/21/17 12:15 - Physical Exam Vitals and I&O: Vital Signs Temp 97.6 F 09/30/17 20:00 Pulse 81 09/30/17 20:00 Resp 20 09/30/17 20:00 BP 106/90 09/30/17 20:00 Pulse Ox 96 09/30/17 20:00 Active Medications: Current Medications Acetaminophen (Tylenol) 650 mg PO Q4HR PRN PRN Reason: Mild Pain / Temp above 100 Stop: 11/17/17 16:47 Al Hydrox/Mg Hydrox/Simethicone (Maalox) 30 ml PO Q4HR PRN PRN Reason: GI DISTRESS Stop: 11/17/17 16:47 Benztropine Mesylate (Cogentin) 1 mg PO BID [facility] Stop: 11/28/17 16:59 Last Admin: 09/30/17 17:42 Dose: 1 mg Diphenhydramine HCl (Benadryl) 50 mg PO Q4H PRN PRN Reason: AGITATION Stop: 11/28/17 14:22 Divalproex Sodium (Depakote Dr) 500 mg PO TID ANTWAN PRN Reason: Protocol Stop: 11/18/17 08:59 Last Admin: 09/30/17 20:36 Dose: 500 mg Docusate Sodium (Colace) 100 mg PO DAILY ANTWAN Stop: 11/18/17 08:59 Last Admin: 09/30/17 08:15 Dose: 100 mg Haloperidol (Haldol) 4 mg PO BID ANTWAN PRN Reason: Protocol Stop: 11/18/17 08:59 Last Admin: 09/30/17 17:42 Dose: 4 mg Levothyroxine Sodium (Synthroid) 0.1 mg PO QDAC ANTWAN Stop: 11/18/17 07:29 Last Admin: 10/01/17 06:31 Dose: 0.1 mg Lorazepam (Ativan) 1 mg PO Q6HR PRN; Protocol PRN Reason: Agitation Stop: 11/17/17 21:38 Last Admin: 09/30/17 05:25 Dose: 1 mg Magnesium Hydroxide (Milk Of Magnesia) 30 ml PO HS PRN PRN Reason: Constipation Multivitamins/Vitamin C (Theragran) 1 tab PO DAILY ANTWAN Stop: 11/18/17 08:59 Last Admin: 09/30/17 08:15 Dose: 1 tab Olanzapine (Zyprexa) 15 mg PO HS ANTWAN PRN Reason: Protocol Stop: 11/22/17 20:59 Last Admin: 09/30/17 20:36 Dose: 15 mg Oxybutynin Chloride (Ditropan Xl) 5 mg PO HS ANTWAN Stop: 11/18/17 20:59 Last Admin: 09/30/17 20:36 Dose: 5 mg Zolpidem Tartrate (Ambien) 5 mg PO HS PRN PRN Reason: Insomnia Stop: 11/17/17 16:47 Last Admin: 09/28/17 21:04 Dose: 5 mg General: Alert, No acute distress HEENT: Atraumatic, PERRLA Neck: Supple Cardiovascular: Regular rate, Normal S1 Assessment/Plan - Problem List Patient Problems: All Active Problems HTN (hypertension) (Acute) I10 Hypothyroid (Acute) E03.9 Psychosis (Acute) F29 Schizophrenia (Acute) F20.9 - Assessment Assessment: hypothyroidism htn ahd psychosis schizophrenia - Plan Plan: continue current orders cpm Nutritional Asmnt/Malnutr-PDOC - Dietary Evaluation Malnutrition Findings (Please click <Entered> for more info): Nutritional Asmnt/Malnutrition Start: 09/26/17 12: 43 Text: Status: Complete Freq: Document 09/26/17 12:43 JESSA (Rec: 09/26/17 13:03 JESSA [id number]) Nutritional Asmnt/Malnutrition Patient General Information Nutritional Screening LR Diagnosis psychosis, schizophrenia Pertinent Medical Hx/Surgical Hx hypothyroidism, cellulitis on right second toe, HTN, AHD, CAD Subjective Information Pt is disoriented, easilly irritated, not appropriate to visit. Pt was living at group home per H&P. Current Diet Order/ Nutrition Support Regular Patient / S.O Not Indicated Pertinent Medications Colace, Synthroid, Vitamin C Pertinent Labs no labs available Nutritional Hx/Data Height 1.65 m Height (Calculated Centimeters) 165.1 Current Weight (lbs) 88.133 kg Weight (Calculated Kilograms) 88.1 Weight (Calculated Grams) 65235.0 [place] Body Weight 125 % [place] Body Weight 155 Weight Status Obese GI Symptoms Food Allergies No Skin Integrity/Comment: intact Current %PO Good (75-100%) Estimated Nutritional Goals BEE in Kcals: Adj wt of IBW Calories/Kcals/Kg 25-30 Kcals Calculated 7021-8550 Protein: Adj wt of IBW Protein g/k.8-1 Protein Calculated 52-65 Fluid: ml 1614-1936ml (1ml/kg) Nutritional Problem No current Nutrition Prob Problem N/A Etiology N/A Signs/Symptoms: N/A Malnutrition Alert Protein-Calorie Malnutrition N/A Is there a minimum of two criteria No selected? Query Text:Check all the applicable criteria. A minimum of two criteria are recommended for diagnosis of either severe or non-severe malnutrition. Intervention/Recommendation Comments continue regular diet as ordered Expected Outcomes/Goals Expected Outcomes/Goals PO intake >75% wt to remain stable skin to remain intact
--- NOTE | 2017-10-01 07:37 | Progress Notes ---
DATE: 09/30/2017 SUBJECTIVE: The patient was seen in her room, lying in the bed. The patient appeared to be comfortable, in no acute distress. According to the nurses, the patient starts to have a more calm behavior, but still has some episodes of impulsive behaviors as well, but less aggressive at this time. The patient appears to be confused. Otherwise, the patient still appears to be comfortable, in no acute distress. OBJECTIVE: VITAL SIGNS: Temperature 97.6, heart rate of 86, blood pressure 127/94, respirations of 19, 100% on room air. HEENT: Head is atraumatic and normocephalic. Eyes: Bilateral conjunctivae are clear. Bilateral pupils are equally round and reactive. NECK: Supple. No JVD. CARDIOVASCULAR: S1 and S2, without murmur. PULMONARY: Clear to auscultation. GASTROINTESTINAL: Soft and nontender without guarding. Positive bowel sounds. MUSCULOSKELETAL: No clubbing, no cyanosis noted. ASSESSMENT: 1. Schizoaffective disorder. 2. Osteoarthritis. 3. Hypothyroidism. 4. History of hypertension. 5. Overactive bladder. PLAN: We will keep the patient in the Psychiatric Unit. We will follow up with a psychiatrist to monitor the patient's behavior. Treatment plans were discussed with the patient's nurse. Treatment plans were discussed with Dr. Fong. JOB# [id number]
[2017-10-01] MEDS: Multivitamin Tab PO SCH (08:31)
[2017-10-01] MEDS: Benztropine 1 MG TAB PO SCH ×2 (08:31→16:27)
--- NOTE | 2017-10-01 09:52 | Diagnostic Imaging Report ---
Pelvis and right hip 2 views Indication: Pain rule out fracture Comparison: none Findings: Mild degenerative changes of the bilateral hip joints are noted. Enthesophyte formation is seen arising from the right greater trochanter. No evidence of an acute fracture or dislocation. Impression: No evidence of an acute fracture. Enthesophyte formation arising from the right greater trochanter. Mild degenerative changes of the bilateral hip joints. In the setting of trauma, if clinical symptoms persist and there is continued concern for an occult fracture, follow up exams exam such as repeat x-ray or CT examination in 5-7 days are recommended.
--- NOTE | 2017-10-01 18:31 | Consultation ---
DATE OF CONSULTATION: 09/30/2017 The patient was seen and evaluated, the patient's chart reviewed. Overnight, the nursing staff reporting that the patient continued to be hyperverbal and paranoid. Today on [id number] evaluation, she continues to be easily hyperverbal, with flight of ideas, racing thoughts, and very pressured speech and disorganized. MENTAL STATUS EXAMINATION: Disorganized, pressured speech, flight of ideas, hyperverbal, very difficult to understand and to maintain a linear conversation. ASSESSMENT AND PLAN: The patient is a 57-year-old female actively in a manic psychotic state, unable to formulate a safe plan outside the structured environment. We will continue the primary psychiatrist's treatment plan and goals which include the Zyprexa to actively target the patient's disorganized thought process. We will continue with the Abilify 10 mg a day and Cogentin 1 mg p.o. b.i.d. It is unclear right now which medication whether the Haldol and the Abilify and loxapine are being cross titrated. She is on three different antipsychotics. It is usually recommended one antipsychotic, but treatment refractory can be difficult to manage and the activated symptoms as related can be very difficult to maintain. In the meantime, we will continue with Zyprexa and Haldol, as we titrate her off completely the Abilify to minimize the risk of the acathisia with the hopes to achieve monotherapy with the augmentation of Depakote. [facility]# [id number]
[2017-10-01] MEDS: Oxybutynin Chloride 5 mg ER Tab PO SCH (20:33)
[2017-10-02] MEDS: Levothyroxine 0.1 Mg Tab PO SCH (06:33)
[2017-10-02] MEDS: Benztropine 1 MG TAB PO SCH ×2 (08:44→16:48)
[2017-10-02] MEDS: Multivitamin Tab PO SCH (08:44)
--- NOTE | 2017-10-02 12:09 | Progress Notes ---
DATE: The patient was seen and evaluated. The patient's chart read and reviewed. This is Dr. Richards covering for Dr. Owens. Today on [id number] evaluation, and observation and evaluation of the patient, she paces in and out of the room. She is pacing out of the hallway. When attempted to have a linear conversation with her, the patient can easily derails, disorganized; and talks from one topic to another topic, needing a lot of redirection. She denies any side effects of medication. MENTAL STATUS EXAMINATION: Disorganized, disheveled, malodorous, extremely poor insight, judgment and impulse control. ASSESSMENT AND PLAN: The patient is a 57-year-old female, currently manic, disorganized state, unable to formulate a safe plan outside structured environment. We will continue with the current medication regimen as she is still reaching steady state, to target the patient's psychotic and disorganized state. JOB# [id number]
[2017-10-02] MEDS: Oxybutynin Chloride 5 mg ER Tab PO SCH (20:51)
--- NOTE | 2017-10-03 06:24 | Progress Notes ---
DATE: 10/02/2017 Case was discussed with staff of the patient, reviewed records. The patient continues to be psychotic, internally preoccupied. Continues to be unable to make safe plan for self-care. Sleeping, eating well. No side effects with the medication, no sedation, no nausea, no extrapyramidal symptoms. I will be changing her medication to Abilify and take her off Haldol and we will continue to work with the patient in group therapy, milieu therapy, and adjust medication as needed. JOB# [id number]
[2017-10-03] MEDS: Levothyroxine 0.1 Mg Tab PO SCH (06:48)
[2017-10-03] MEDS: Multivitamin Tab PO SCH (08:34)
[2017-10-03] MEDS: Benztropine 1 MG TAB PO SCH ×2 (08:34→16:29)
--- NOTE | 2017-10-03 09:01 | General Progress Note ---
Subjective - Review of Systems Events since last encounter: patient awake continues to be psychotic denies chest pain Objective - Results Recent Labs: Laboratory Last Values Valproic Acid 90.1 ug/mL (50.0-100.0) 09/21/17 12:15 - Physical Exam Vitals and I&O: Vital Signs Temp 97.6 F 10/02/17 20:31 Pulse 89 10/02/17 20:31 Resp 20 10/02/17 20:31 BP 115/72 10/02/17 20:31 Pulse Ox 97 10/02/17 20:31 Intake & Output 10/02/17 10/03/17 10/03/17 18:59 06:59 18:59 Intake Total 950 660 Balance 950 660 Intake: Oral 950 660 Other: # Voids 4 2 # Bowel Movements 1 1 Active Medications: Current Medications Acetaminophen (Tylenol) 650 mg PO Q4HR PRN PRN Reason: Mild Pain / Temp above 100 Stop: 11/17/17 16:47 Last Admin: 10/03/17 00:01 Dose: 650 mg Al Hydrox/Mg Hydrox/Simethicone (Maalox) 30 ml PO Q4HR PRN PRN Reason: GI DISTRESS Stop: 11/17/17 16:47 Aripiprazole (Abilify) 10 mg PO HS ANTWAN PRN Reason: Protocol Stop: 12/01/17 20:59 Last Admin: 10/02/17 20:51 Dose: 10 mg Benztropine Mesylate (Cogentin) 1 mg PO BID ANTWAN Stop: 11/28/17 16:59 Last Admin: 10/03/17 08:34 Dose: 1 mg Diphenhydramine HCl (Benadryl) 50 mg PO Q4H PRN PRN Reason: AGITATION Stop: 11/28/17 14:22 Divalproex Sodium (Depakote Dr) 500 mg PO TID ANTWAN PRN Reason: Protocol Stop: 11/18/17 08:59 Last Admin: 10/03/17 08:34 Dose: 500 mg Docusate Sodium (Colace) 100 mg PO DAILY ANTWAN Stop: 11/18/17 08:59 Last Admin: 10/03/17 08:34 Dose: 100 mg Levothyroxine Sodium (Synthroid) 0.1 mg PO QDAC [facility] Stop: 11/18/17 07:29 Last Admin: 10/03/17 06:48 Dose: 0.1 mg Lorazepam (Ativan) 1 mg PO Q6HR PRN; Protocol PRN Reason: Agitation Stop: 11/17/17 21:38 Last Admin: 10/03/17 00:02 Dose: 1 mg Magnesium Hydroxide (Milk Of Magnesia) 30 ml PO HS PRN PRN Reason: Constipation Multivitamins/Vitamin C (Theragran) 1 tab PO DAILY ANTWAN Stop: 11/18/17 08:59 Last Admin: 10/03/17 08:34 Dose: 1 tab Olanzapine (Zyprexa) 15 mg PO HS ANTWAN PRN Reason: Protocol Stop: 11/22/17 20:59 Last Admin: 10/02/17 20:51 Dose: 15 mg Oxybutynin Chloride (Ditropan Xl) 5 mg PO HS ANTWAN Stop: 11/18/17 20:59 Last Admin: 10/02/17 20:51 Dose: 5 mg Zolpidem Tartrate (Ambien) 5 mg PO HS PRN PRN Reason: Insomnia Stop: 11/17/17 16:47 Last Admin: 10/02/17 20:51 Dose: 5 mg General: Alert, No acute distress HEENT: Atraumatic, PERRLA Neck: Supple Cardiovascular: Regular rate, Normal S1 Assessment/Plan - Problem List Patient Problems: All Active Problems HTN (hypertension) (Acute) I10 Hypothyroid (Acute) E03.9 Psychosis (Acute) F29 Schizophrenia (Acute) F20.9 - Assessment Assessment: hypothyroidism htn ahd psychosis schizophrenia - Plan Plan: continue current orders cpm Nutritional Asmnt/Malnutr-PDOC - Dietary Evaluation Malnutrition Findings (Please click <Entered> for more info): Nutritional Asmnt/Malnutrition Start: 09/26/17 12: 43 Text: Status: Complete Freq: Document 09/26/17 12:43 JESSA (Rec: 09/26/17 13:03 JESSA [id number]) Nutritional Asmnt/Malnutrition Patient General Information Nutritional Screening LR Diagnosis psychosis, schizophrenia Pertinent Medical Hx/Surgical Hx hypothyroidism, cellulitis on right second toe, HTN, AHD, CAD Subjective Information Pt is disoriented, easilly irritated, not appropriate to visit. Pt was living at assisted per H&P. Current Diet Order/ Nutrition Support Regular Patient / S.O Not Indicated Pertinent Medications Colace, Synthroid, Vitamin C Pertinent Labs no labs available Nutritional Hx/Data Height 1.65 m Height (Calculated Centimeters) 165.1 Current Weight (lbs) 88.133 kg Weight (Calculated Kilograms) 88.1 Weight (Calculated Grams) 44687.0 [place] Body Weight 125 % [place] Body Weight 155 Weight Status Obese GI Symptoms Food Allergies No Skin Integrity/Comment: intact Current %PO Good (75-100%) Estimated Nutritional Goals BEE in Kcals: Adj wt of IBW Calories/Kcals/Kg 25-30 Kcals Calculated 5081-7221 Protein: Adj wt of IBW Protein g/k.8-1 Protein Calculated 52-65 Fluid: ml 1614-1936ml (1ml/kg) Nutritional Problem No current Nutrition Prob Problem N/A Etiology N/A Signs/Symptoms: N/A Malnutrition Alert Protein-Calorie Malnutrition N/A Is there a minimum of two criteria No selected? Query Text:Check all the applicable criteria. A minimum of two criteria are recommended for diagnosis of either severe or non-severe malnutrition. Intervention/Recommendation Comments continue regular diet as ordered Expected Outcomes/Goals Expected Outcomes/Goals PO intake >75% wt to remain stable skin to remain intact
--- NOTE | 2017-10-03 11:30 | Internal Medicine Prog Note ---
Internal Medicine Subjective - Subjective Service Date: 10/03/17 Patient is:: awake Per staff patient has:: tolerating meds Internal Medicine Objective - Results Recent Labs: Laboratory Last Values Valproic Acid 90.1 ug/mL (50.0-100.0) 09/21/17 12:15 - Physical Exam Vitals and I&O: Vital Signs Temp 97.6 F 10/02/17 20:31 Pulse 89 10/02/17 20:31 Resp 20 10/02/17 20:31 BP 115/72 10/02/17 20:31 Pulse Ox 97 10/02/17 20:31 Intake & Output 10/02/17 10/03/17 10/03/17 18:59 06:59 18:59 Intake Total 950 660 Balance 950 660 Intake: Oral 950 660 Other: # Voids 4 2 # Bowel Movements 1 1 Active Medications: Current Medications Acetaminophen (Tylenol) 650 mg PO Q4HR PRN PRN Reason: Mild Pain / Temp above 100 Stop: 11/17/17 16:47 Last Admin: 10/03/17 00:01 Dose: 650 mg Al Hydrox/Mg Hydrox/Simethicone (Maalox) 30 ml PO Q4HR PRN PRN Reason: GI DISTRESS Stop: 11/17/17 16:47 Aripiprazole (Abilify) 10 mg PO HS ANTWAN PRN Reason: Protocol Stop: 12/01/17 20:59 Last Admin: 10/02/17 20:51 Dose: 10 mg Benztropine Mesylate (Cogentin) 1 mg PO BID ANTWAN Stop: 11/28/17 16:59 Last Admin: 10/03/17 08:34 Dose: 1 mg Diphenhydramine HCl (Benadryl) 50 mg PO Q4H PRN PRN Reason: AGITATION Stop: 11/28/17 14:22 Divalproex Sodium (Depakote Dr) 500 mg PO TID ANTWAN PRN Reason: Protocol Stop: 11/18/17 08:59 Last Admin: 10/03/17 08:34 Dose: 500 mg Docusate Sodium (Colace) 100 mg PO DAILY ANTWAN Stop: 11/18/17 08:59 Last Admin: 10/03/17 08:34 Dose: 100 mg Levothyroxine Sodium (Synthroid) 0.1 mg PO QDAC [facility] Stop: 11/18/17 07:29 Last Admin: 10/03/17 06:48 Dose: 0.1 mg Lorazepam (Ativan) 1 mg PO Q6HR PRN; Protocol PRN Reason: Agitation Stop: 11/17/17 21:38 Last Admin: 10/03/17 00:02 Dose: 1 mg Magnesium Hydroxide (Milk Of Magnesia) 30 ml PO HS PRN PRN Reason: Constipation Multivitamins/Vitamin C (Theragran) 1 tab PO DAILY ANTWAN Stop: 11/18/17 08:59 Last Admin: 10/03/17 08:34 Dose: 1 tab Olanzapine (Zyprexa) 15 mg PO HS ANTWAN PRN Reason: Protocol Stop: 11/22/17 20:59 Last Admin: 10/02/17 20:51 Dose: 15 mg Oxybutynin Chloride (Ditropan Xl) 5 mg PO HS ANTWAN Stop: 11/18/17 20:59 Last Admin: 10/02/17 20:51 Dose: 5 mg Zolpidem Tartrate (Ambien) 5 mg PO HS PRN PRN Reason: Insomnia Stop: 11/17/17 16:47 Last Admin: 10/02/17 20:51 Dose: 5 mg General: alert HEENT: NC/AT, PERRLA Neck: Supple Lungs: CTAB Abdomen: non-tender, non-distended, positive bowel sound Neurological: no change Internal Medicine Assmt/Plan - Assessment Assessment: hypothyroidism htn ahd psychosis schizophrenia - Plan Plan: monitor BP safety precautions continue current plan of care Nutritional Asmnt/Malnutr-PDOC - Dietary Evaluation Malnutrition Findings (Please click <Entered> for more info): Nutritional Asmnt/Malnutrition Start: 09/26/17 12: 43 Text: Status: Complete Freq: Document 09/26/17 12:43 JESSA (Rec: 09/26/17 13:03 NILDA [id number]) Nutritional Asmnt/Malnutrition Patient General Information Nutritional Screening LR Diagnosis psychosis, schizophrenia Pertinent Medical Hx/Surgical Hx hypothyroidism, cellulitis on right second toe, HTN, AHD, CAD Subjective Information Pt is disoriented, easilly irritated, not appropriate to visit. Pt was living at assisted per H&P. Current Diet Order/ Nutrition Support Regular Patient / S.O Not Indicated Pertinent Medications Colace, Synthroid, Vitamin C Pertinent Labs no labs available Nutritional Hx/Data Height 5 ft 5 in Height (Calculated Centimeters) 165.1 Current Weight (lbs) 194 lb 4.8 oz Weight (Calculated Kilograms) 88.1 Weight (Calculated Grams) 57232.0 [place] Body Weight 125 % [place] Body Weight 155 Weight Status Obese GI Symptoms Food Allergies No Skin Integrity/Comment: intact Current %PO Good (75-100%) Estimated Nutritional Goals BEE in Kcals: Adj wt of IBW Calories/Kcals/Kg 25-30 Kcals Calculated 0152-2762 Protein: Adj wt of IBW Protein g/k.8-1 Protein Calculated 52-65 Fluid: ml 1614-1936ml (1ml/kg) Nutritional Problem No current Nutrition Prob Problem N/A Etiology N/A Signs/Symptoms: N/A Malnutrition Alert Protein-Calorie Malnutrition N/A Is there a minimum of two criteria No selected? Query Text:Check all the applicable criteria. A minimum of two criteria are recommended for diagnosis of either severe or non-severe malnutrition. Intervention/Recommendation Comments continue regular diet as ordered Expected Outcomes/Goals Expected Outcomes/Goals PO intake >75% wt to remain stable skin to remain intact
[2017-10-03] MEDS: Oxybutynin Chloride 5 mg ER Tab PO SCH (20:30)
--- NOTE | 2017-10-03 20:36 | Progress Notes ---
DATE: 10/03/2017 Case discussed with staff and the patient, reviewed records. The patient was taken off Haldol yesterday and initiated Abilify on her. The patient continued to be talking to herself. Continues to be rambling, unpredictable, impulsive, needing redirection, looking disheveled, disorganized, internally preoccupied. No side effects with the medication, no sedation, no nausea, no extrapyramidal symptoms. We will continue to work with the patient in group therapy, milieu therapy, and adjust medications as needed. JOB# [id number]
[2017-10-04] MEDS: Levothyroxine 0.1 Mg Tab PO SCH (06:41)
--- NOTE | 2017-10-04 09:46 | General Progress Note ---
Subjective - Review of Systems Events since last encounter: patient is anxious denies pain Objective - Results Recent Labs: Laboratory Last Values Valproic Acid 90.1 ug/mL (50.0-100.0) 09/21/17 12:15 - Physical Exam Vitals and I&O: Vital Signs Temp 0 F 10/04/17 06:46 Pulse 100 10/03/17 20:30 Resp 20 10/03/17 20:30 BP 154/68 10/03/17 20:30 Pulse Ox 94 10/03/17 20:30 Intake & Output 10/03/17 10/04/17 10/04/17 18:59 06:59 18:59 Intake Total 1000 480 Balance 1000 480 Intake: Oral 1000 480 Other: # Voids 4 3 # Bowel Movements 1 0 Active Medications: Current Medications Acetaminophen (Tylenol) 650 mg PO Q4HR PRN PRN Reason: Mild Pain / Temp above 100 Stop: 11/17/17 16:47 Last Admin: 10/03/17 00:01 Dose: 650 mg Al Hydrox/Mg Hydrox/Simethicone (Maalox) 30 ml PO Q4HR PRN PRN Reason: GI DISTRESS Stop: 11/17/17 16:47 Aripiprazole (Abilify) 10 mg PO HS ANTWAN PRN Reason: Protocol Stop: 12/01/17 20:59 Last Admin: 10/03/17 20:31 Dose: 10 mg Benztropine Mesylate (Cogentin) 1 mg PO BID ANTWAN Stop: 11/28/17 16:59 Last Admin: 10/03/17 16:29 Dose: 1 mg Diphenhydramine HCl (Benadryl) 50 mg PO Q4H PRN PRN Reason: AGITATION Stop: 11/28/17 14:22 Divalproex Sodium (Depakote Dr) 500 mg PO TID ANTWAN PRN Reason: Protocol Stop: 11/18/17 08:59 Last Admin: 10/03/17 20:31 Dose: 500 mg Docusate Sodium (Colace) 100 mg PO DAILY [facility] Stop: 11/18/17 08:59 Last Admin: 10/03/17 08:34 Dose: 100 mg Levothyroxine Sodium (Synthroid) 0.1 mg PO QDAC [facility] Stop: 11/18/17 07:29 Last Admin: 10/04/17 06:41 Dose: 0.1 mg Lorazepam (Ativan) 1 mg PO Q6HR PRN; Protocol PRN Reason: Agitation Stop: 11/17/17 21:38 Last Admin: 10/03/17 00:02 Dose: 1 mg Magnesium Hydroxide (Milk Of Magnesia) 30 ml PO HS PRN PRN Reason: Constipation Multivitamins/Vitamin C (Theragran) 1 tab PO DAILY ANTWAN Stop: 11/18/17 08:59 Last Admin: 10/03/17 08:34 Dose: 1 tab Olanzapine (Zyprexa) 20 mg PO HS ANTWAN PRN Reason: Protocol Stop: 12/03/17 09:03 Oxybutynin Chloride (Ditropan Xl) 5 mg PO HS ANTWAN Stop: 11/18/17 20:59 Last Admin: 10/03/17 20:30 Dose: 5 mg Zolpidem Tartrate (Ambien) 5 mg PO HS PRN PRN Reason: Insomnia Stop: 11/17/17 16:47 Last Admin: 10/03/17 20:31 Dose: 5 mg General: Alert, No acute distress HEENT: Atraumatic, PERRLA Neck: Supple Cardiovascular: Regular rate, Normal S1 Assessment/Plan - Problem List Patient Problems: All Active Problems HTN (hypertension) (Acute) I10 Hypothyroid (Acute) E03.9 Psychosis (Acute) F29 Schizophrenia (Acute) F20.9 - Assessment Assessment: hypothyroidism htn ahd psychosis schizophrenia - Plan Plan: continue current orders cpm Nutritional Asmnt/Malnutr-PDOC - Dietary Evaluation Malnutrition Findings (Please click <Entered> for more info): Nutritional Asmnt/Malnutrition Start: 09/26/17 12: 43 Text: Status: Complete Freq: Document 09/26/17 12:43 NILDA (Rec: 09/26/17 13:03 NILDAG [id number]) Nutritional Asmnt/Malnutrition Patient General Information Nutritional Screening LR Diagnosis psychosis, schizophrenia Pertinent Medical Hx/Surgical Hx hypothyroidism, cellulitis on right second toe, HTN, AHD, CAD Subjective Information Pt is disoriented, easilly irritated, not appropriate to visit. Pt was living at [facility] per H&P. Current Diet Order/ Nutrition Support Regular Patient / S.O Not Indicated Pertinent Medications Colace, Synthroid, Vitamin C Pertinent Labs no labs available Nutritional Hx/Data Height 1.65 m Height (Calculated Centimeters) 165.1 Current Weight (lbs) 88.133 kg Weight (Calculated Kilograms) 88.1 Weight (Calculated Grams) 39789.0 [place] Body Weight 125 % [place] Body Weight 155 Weight Status Obese GI Symptoms Food Allergies No Skin Integrity/Comment: intact Current %PO Good (75-100%) Estimated Nutritional Goals BEE in Kcals: Adj wt of IBW Calories/Kcals/Kg 25-30 Kcals Calculated 8228-2974 Protein: Adj wt of IBW Protein g/k.8-1 Protein Calculated 52-65 Fluid: ml 1614-1936ml (1ml/kg) Nutritional Problem No current Nutrition Prob Problem N/A Etiology N/A Signs/Symptoms: N/A Malnutrition Alert Protein-Calorie Malnutrition N/A Is there a minimum of two criteria No selected? Query Text:Check all the applicable criteria. A minimum of two criteria are recommended for diagnosis of either severe or non-severe malnutrition. Intervention/Recommendation Comments continue regular diet as ordered Expected Outcomes/Goals Expected Outcomes/Goals PO intake >75% wt to remain stable skin to remain intact
--- NOTE | 2017-10-04 10:27 | Progress Notes ---
DATE: 10/04/2017 Case discussed with the patient. The patient continues to be psychotic, continues to be unpredictable and impulsive, needing redirection, talking to herself, delusional, pacing the hallway. She did not sleep well last night, still unpredictable, impulsive, needing redirection. No side effects with the medication, no sedation, no nausea and no prominent symptoms. I will be increasing her olanzapine dose to 20 mg at bedtime. We will continue to work with the patient in group therapy, milieu therapy and adjust medication as needed. JOB# [id number]
[2017-10-04] MEDS: Benztropine 1 MG TAB PO SCH ×2 (10:38→18:16)
[2017-10-04] MEDS: Multivitamin Tab PO SCH (10:38)
[2017-10-04] MEDS: Oxybutynin Chloride 5 mg ER Tab PO SCH (20:49)
[2017-10-05] MEDS: Levothyroxine 0.1 Mg Tab PO SCH (06:58)
--- NOTE | 2017-10-05 08:14 | General Progress Note ---
Subjective - Review of Systems Events since last encounter: no change patient still anxious Objective - Results Recent Labs: Laboratory Last Values Valproic Acid 90.1 ug/mL (50.0-100.0) 09/21/17 12:15 - Physical Exam Vitals and I&O: Vital Signs Temp 98.4 F 10/05/17 06:59 Pulse 96 10/05/17 06:59 Resp 19 10/05/17 06:59 BP 144/78 10/05/17 06:59 Pulse Ox 97 10/05/17 06:59 Intake & Output 10/04/17 10/05/17 10/05/17 18:59 06:59 18:59 Intake Total 120 Balance 120 Intake: Oral 120 Other: # Voids 3 Active Medications: Current Medications Acetaminophen (Tylenol) 650 mg PO Q4HR PRN PRN Reason: Mild Pain / Temp above 100 Stop: 11/17/17 16:47 Last Admin: 10/05/17 01:54 Dose: 650 mg Al Hydrox/Mg Hydrox/Simethicone (Maalox) 30 ml PO Q4HR PRN PRN Reason: GI DISTRESS Stop: 11/17/17 16:47 Aripiprazole (Abilify) 10 mg PO HS ANTWAN PRN Reason: Protocol Stop: 12/01/17 20:59 Last Admin: 10/04/17 20:48 Dose: 10 mg Benztropine Mesylate (Cogentin) 1 mg PO BID [facility] Stop: 11/28/17 16:59 Last Admin: 10/04/17 18:16 Dose: 1 mg Diphenhydramine HCl (Benadryl) 50 mg PO Q4H PRN PRN Reason: AGITATION Stop: 11/28/17 14:22 Divalproex Sodium (Depakote Dr) 500 mg PO TID ANTWAN PRN Reason: Protocol Stop: 11/18/17 08:59 Last Admin: 10/04/17 20:48 Dose: 500 mg Docusate Sodium (Colace) 100 mg PO DAILY [facility] Stop: 11/18/17 08:59 Last Admin: 10/04/17 10:38 Dose: 100 mg Levothyroxine Sodium (Synthroid) 0.1 mg PO QDAC [facility] Stop: 11/18/17 07:29 Last Admin: 10/05/17 06:58 Dose: 0.1 mg Lorazepam (Ativan) 1 mg PO Q6HR PRN; Protocol PRN Reason: Agitation Stop: 11/17/17 21:38 Last Admin: 10/03/17 00:02 Dose: 1 mg Magnesium Hydroxide (Milk Of Magnesia) 30 ml PO HS PRN PRN Reason: Constipation Multivitamins/Vitamin C (Theragran) 1 tab PO DAILY ANTWAN Stop: 11/18/17 08:59 Last Admin: 10/04/17 10:38 Dose: 1 tab Olanzapine (Zyprexa) 20 mg PO HS ANTWAN PRN Reason: Protocol Stop: 12/03/17 09:03 Last Admin: 10/04/17 20:49 Dose: 20 mg Oxybutynin Chloride (Ditropan Xl) 5 mg PO HS ANTWAN Stop: 11/18/17 20:59 Last Admin: 10/04/17 20:49 Dose: 5 mg Zolpidem Tartrate (Ambien) 5 mg PO HS PRN PRN Reason: Insomnia Stop: 11/17/17 16:47 Last Admin: 10/03/17 20:31 Dose: 5 mg General: Alert, No acute distress HEENT: Atraumatic, PERRLA Neck: Supple Cardiovascular: Regular rate, Normal S1 Assessment/Plan - Problem List Patient Problems: All Active Problems HTN (hypertension) (Acute) I10 Hypothyroid (Acute) E03.9 Psychosis (Acute) F29 Schizophrenia (Acute) F20.9 - Assessment Assessment: hypothyroidism htn ahd psychosis schizophrenia - Plan Plan: continue current orders cpm Nutritional Asmnt/Malnutr-PDOC - Dietary Evaluation Malnutrition Findings (Please click <Entered> for more info): Nutritional Asmnt/Malnutrition Start: 09/26/17 12: 43 Text: Status: Complete Freq: Document 09/26/17 12:43 NILDA (Rec: 09/26/17 13:03 NILDA [id number]) Nutritional Asmnt/Malnutrition Patient General Information Nutritional Screening LR Diagnosis psychosis, schizophrenia Pertinent Medical Hx/Surgical Hx hypothyroidism, cellulitis on right second toe, HTN, AHD, CAD Subjective Information Pt is disoriented, easilly irritated, not appropriate to visit. Pt was living at [facility] per H&P. Current Diet Order/ Nutrition Support Regular Patient / S.O Not Indicated Pertinent Medications Colace, Synthroid, Vitamin C Pertinent Labs no labs available Nutritional Hx/Data Height 1.65 m Height (Calculated Centimeters) 165.1 Current Weight (lbs) 88.133 kg Weight (Calculated Kilograms) 88.1 Weight (Calculated Grams) 78734.0 [place] Body Weight 125 % [place] Body Weight 155 Weight Status Obese GI Symptoms Food Allergies No Skin Integrity/Comment: intact Current %PO Good (75-100%) Estimated Nutritional Goals BEE in Kcals: Adj wt of IBW Calories/Kcals/Kg 25-30 Kcals Calculated 3770-0630 Protein: Adj wt of IBW Protein g/k.8-1 Protein Calculated 52-65 Fluid: ml 1614-1936ml (1ml/kg) Nutritional Problem No current Nutrition Prob Problem N/A Etiology N/A Signs/Symptoms: N/A Malnutrition Alert Protein-Calorie Malnutrition N/A Is there a minimum of two criteria No selected? Query Text:Check all the applicable criteria. A minimum of two criteria are recommended for diagnosis of either severe or non-severe malnutrition. Intervention/Recommendation Comments continue regular diet as ordered Expected Outcomes/Goals Expected Outcomes/Goals PO intake >75% wt to remain stable skin to remain intact
[2017-10-05] MEDS: Multivitamin Tab PO SCH (08:19)
[2017-10-05] MEDS: Benztropine 1 MG TAB PO SCH ×2 (08:20→16:31)
--- NOTE | 2017-10-05 13:14 | Discharge Summary ---
DATE OF DISCHARGE: 10/05/2017 IDENTIFYING INFORMATION: The patient is a 57-year-old female. CHIEF COMPLAINT: No answer. HISTORY OF PRESENT ILLNESS: The patient is coming from [place] with history of schizophrenia, rambling speech, nonsensical bizarre, flight of ideas, not making sense, singing instead of answering questions, stating that she is from [place]. When I talked to her, she was more preoccupied telling me that my clothes are nice and talking to herself, unpredictable, impulsive with history of schizophrenia. COURSE IN THE HOSPITAL: The patient was continued with medication prior to admission and she was on Haldol. I did decrease the dose to 4 mg twice a day, later discontinued. She was continued with Zyprexa increased the dose to 20 mg over the course of her stay after all because of her psychosis, I took her off the Haldol and initiated Abilify increased to 10 mg a day, also was continued with Depakote 500 mg 3 times a day. The patient also was continued on levothyroxine, Ativan as needed, multivitamin, oxybutynin, and Ambien as needed, benztropine as needed, diphenhydramine as needed. The patient progressively got better. As she improved, she was no longer agitated though she continues to talk herself, but she was easy to redirect. She will be going to a alf, so as we will be able to take care of her, as there has been no more agitation or aggressive behavior. So, the patient improved. She was doing well, sleeping well, eating well and felt she could be discharged to a lesser level of care. FINAL DIAGNOSIS: AXIS I: Chronic undifferentiated schizophrenia. MEDICAL DIAGNOSIS: Deferred to the medical doctor. The patient will follow up with the psychiatrist, primary care physician and therapist. EXPECTED OUTCOME: Stable, if the patient complies with the above. [facility]# [id number]
== END 2017-10-05 17:00 | disposition home or self-care (01) | DRG 885 ==
LOC: GERO 16:11
PROVIDERS: ADMIT Psychiatry & Neurology Psychiatry; ATTEND Psychiatry & Neurology Psychiatry
DX: F25.0 Schizoaffective disorder, bipolar type (principal); F23 Brief psychotic disorder; E03.9 Hypothyroidism, unspecified; I10 Essential (primary) hypertension; F29 Unspecified psychosis not due to a substance or known physiological condition; R32 Unspecified urinary incontinence; I25.10 Atherosclerotic heart disease of native coronary artery without angina pectoris; M19.90 Unspecified osteoarthritis, unspecified site; N32.81 Overactive bladder; Z79.899 Other long term (current) drug therapy
CPT/HCPCS: 36415-UA; 73501; 80164-TC; J7051; Z7610